=== PATIENT | male | born 1960 | race Caucasian/White ===

== ENCOUNTER 2019-10-12 20:41 | Inpatient (IN) | payer OTHER, SELFPAY ==
--- NOTE | ~2019-10-12 | XR_ITS ---
EXAMINATION: XR chest 1V portable DATE: 10/12/2019 21:57 INDICATION: Dizziness. Weakness. TECHNIQUE: A single frontal view of the chest was obtained. COMPARISON: Chest 2 views 09/17/2019, chest CT 09/17/2019 FINDINGS: There are lucencies in the lungs, consistent with emphysema. No pleural effusion or pneumot horax. The heart size is normal. Median sternotomy wires are noted. IMPRESSION: 1. Emphysema. Reviewed, dictated and finalized at location A. ENGINEER IMPRESSION: 1. Emphysema.
--- NOTE | 2019-10-12 20:40 | ED.GENADULT ---
HPI - General Adult General Chief complaint: Recheck/Abnormal Lab/Rx Stated complaint: HYPERGLYCEMIA Time Seen by Provider: 10/12/19 20:40 Source: patient Mode of arrival: EMS Limitations: no limitations History of Present Illness HPI narrative: A 59 y/o male presents to the ED, via EMS, with c/o high blood sugar. Pt states that his blood sugar read high when he checked it at home tonight at 2000. He normally checks his blood sugar at 0600, 1200, 1700, and 2000 and reports that it has been intermittently high for the past month. Pt called his sister today after he tested his blood sugar, and his sister called EMS. EMS notes that his blood sugar read high on their meter that reads up to 600 en route. Pt recently got a new blood glucose medication, and states that he is unsure how to take the new medication. He reports nausea, lightheadedness, CP, and dizziness. He notes that the CP has been constant for a week and had an appointment with Dr. Robison on 10/07/19. Pt states that Dr. Robison gave him a prescription for his heart rate and he started it on Sunday. He has a follow-up appointment with Dr. Robison on 10/15/19. Pt has a PMHX of HTN, NM, CABG, COPD, and hyperlipidemia. He takes Eliquis BID. Pt lives alone. complaint: High blood sugar Onset (ago): month(s) (1) Associated symptoms: chest pain, nausea/vomiting and other (Lightheadedness, dizziness) Treatments prior to arrival: other (Insulin) Related Data Home Medications Medication Instructions Recorded Confirmed albuterol sulfate 90 mcg/actuation 1 puff INHALATION Q4H PRN 10/06/19 aerosol inhaler apixaban 5 mg tablet 5 mg PO BID 10/06/19 aspirin 81 mg tablet,delayed 81 mg PO DAILY 10/06/19 release atorvastatin 40 mg tablet 40 mg PO DAILY 10/06/19 beclomethasone dipropionate 80 mcg INHALATION 10/06/19 mcg/actuation aerosol inhaler ferrous sulfate 325 mg (65 mg 325 mg PO BID 10/06/19 iron) tablet furosemide 20 mg tablet 20 mg PO TID tablet 10/06/19 hydrocodone 7.5 mg-acetaminophen 1 tablet PO Q6H PRN 10/06/19 325 mg tablet levetiracetam 1,000 mg tablet 1,000 mg PO Q12H 10/06/19 lisinopril 2.5 mg tablet 2.5 mg PO DAILY 10/06/19 metoprolol succinate 25 mg 25 mg PO DAILY 10/06/19 tablet,extended release 24 hr omeprazole 20 mg tablet,delayed 20 mg PO DAILY 10/06/19 release ranolazine 500 mg tablet,extended 500 mg PO Q12H 10/06/19 release,12 hr sertraline 100 mg tablet 100 mg PO DAILY 10/06/19 alprazolam 1 mg tablet 0.5 mg PO BID tablet 10/07/19 diltiazem HCl 30 mg tablet 30 mg PO ONCE tablet 10/07/19 famotidine 20 mg tablet 20 mg PO DAILY 10/07/19 gabapentin 300 mg capsule 300 mg PO BID cap 10/07/19 insulin lispro 100 unit/mL 1 sliding scale dose SUB-Q 10/07/19 subcutaneous solution USEASDIRECTD triamcinolone acetonide 0.1 % 1 applic TOPICAL BID 10/07/19 topical cream Allergies Allergy/AdvReac Type Severity Reaction Status Date / Time glimepiride Allergy Intermediate Rash Verified 10/07/19 10:11 codeine Allergy Unknown Unknown Verified 10/07/19 10:11 glyburide Allergy Unknown Unknown Verified 10/07/19 10:11 metformin Allergy Unknown Unknown Verified 10/07/19 10:11 Review of Systems Review of Systems: All systems reviewed & are unremarkable except as noted in HPI and below Cardiovascular: Cardiovascular: Reports chest pain Gastrointestinal: Gastrointestinal: Reports nausea Neurologic: Reports dizziness and Reports other (Lightheadedness) [facility] Past Medical History Medical History (Updated 10/12/19 @ 22:56 by Danny Guerrero MD) Anemia (Acute) Ankle fracture, left (Acute) Anxiety (Acute) Arthritis (Acute) Asthma (Acute) Bipolar disorder (Acute) COPD (chronic obstructive pulmonary disease) (Acute) CVA (cerebral vascular accident) (Acute) Deficient knowledge of leg surgery (Acute) Depression (Acute) Diabetes (Acute) Elevated lipids (Acute) GI bleed (Acute) Headache, migraine (Acute) History of radiation therapy (Acute) H
--- NOTE | 2019-10-12 20:43 | ECG_ITS ---
Measurements Intervals [place] Rate: 115 P: [place]: 0 QRS: -9 QRSD: 81 T: 81 QT: 425 QTc: 588 Interpretive Statements ATRIAL FLUTTER/TACHYCARDIA WITH RAPID VENTRICULAR RESPONSE INFERIOR INFARCT, AGE INDETERMINATE ABNORMAL ECG Electronically Signed On 10-13-2019 6:30:14 RAILROAD HAND by Gus Robison D.O.
[2019-10-12 20:44] VITALS: BP 144/80; RESP 30; TEMP 36.8; O2SAT 96
[2019-10-12 20:49] LABS: Glucose Point of Care > 500 (65-105)
[2019-10-12 21:04] LABS: Basophils Percent Auto 0.6 % (0.2-1.2); Eosinophils Absolute Auto 0.1 K/mm3 (0-0.3); Hematocrit 41.8 % (42.0-52.0); Hemoglobin 13.4 g/dL (14.0-18.0); Immature Granulocyte Absolute 0.04 K/mm3 (0.00-0.031); Immature Granulocyte Percent A 0.6 % (0-0.5); Lymphocytes Absolute Auto 1.51 K/mm3 (0.9-3.2); Lymphocytes Percent Auto 21.1 % (18.3-44.2); Mean Corpuscular HGB Conc 32.1 g/dl (32-36); Mean Corpuscular Hemoglobin 31.4 pg (26-34); Mean Corpuscular Volume 97.9 fl (80-100); Mean Platelet Volume 10.9 fl (7.4-10.4); Monocytes Absolute Auto 0.5 K/mm3 (0.1-0.6); Monocytes Percent Auto 7.4 % (2.6-8.5); Neutrophils Absolute Auto 4.9 K/mm3 (1.3-6.7); Neutrophils Percent Auto 68.3 % (45.5-73.1); Platelet Count Result 182 k/mm3 (150-375); Red Blood Count 4.27 M/mm3 (4.6-6.20); Red Cell Distribution Width 13.7 % (11.5-14.5); White Blood Count 7.2 K/mm3 (4.5-10.0)
[2019-10-12] MEDS: SODIUM CHLORIDE 0.9% IV 1,000 ML 999 ML IV CONT (21:15)
[2019-10-12 21:17] LABS: Alveolar/Arterial O2 Gradient 26.4 mmHg; Base Excess ABG -3.1 mEq/l (+/-2.0); Carboxyhemoglobin 4.5 % THb (0-2.0); Fractional Inspired Oxygen 21 %; HCO3 ABG 22.5 mEq/l (22.0-26.0); Methemoglobin ABG 0.3 %THb (0-1.5); Oxygen Content ABG 17.7 %vol (16.0-22.0); Oxygen Saturation ABG 93.8 % (95.0-100.0); Oxyhemoglobin 89.2 % THb (90.0-100.0); PCO2 ABG 42.4 mmHg (35.0-45.0); PO2 ABG 72.6 mmHg (80.0-100.0); PO2 FiO2 Ratio Arterial Blood 3.46 %; Total Hemoglobin 14.1 g/dL (12.0-18.0); pH ABG 7.343 (7.350-7.450)
[2019-10-12 21:18] LABS: Device ROOM AIR; Modified Allen's Test Pass; Site Drawn LEFT RADIAL
[2019-10-12 21:26] LABS: Beta-Hydroxybutyrate/Acetoacetate 0.09 mmol/L (0.02-0.27)
[2019-10-12 21:27] LABS: Alanine Aminotransferase 18 U/L (4-50); Albumin Level 3.8 g/dL (3.5-5.1); Alkaline Phosphatase 93 U/L (38-126); Aspartate Amino Transferase 17 U/L (17-59); Bilirubin,Total 0.2 mg/dL (0.2-1.3); Blood Urea Nitrogen 26 mg/dL (9-20); Calcium 8.3 mg/dL (8.4-10.2); Carbon Dioxide 22 mmol/L (22-30); Chloride 96 mmol/L (98-107); Estimated Glomerular Filt Rate > 60; Magnesium 1.7 mg/dL (1.6-2.3); Phosphorus 4.7 mg/dL (2.5-4.5); Potassium 4.5 mmol/L (3.4-5.0); Sodium 130 mmol/L (137-145)
[2019-10-12 21:38] LABS: Glucose 690 mg/dL (75-110)
[2019-10-12 21:47] VITALS: BP 121/76; PULSE 117; RESP 20; O2SAT 98
--- NOTE | 2019-10-12 23:04 | PC.NURSE ---
called pharmacy on insulin drip. States they will started mixing it.
[2019-10-13] VITALS (27 sets, daily range): BP systolic 83–116; BP diastolic 54–81; PULSE 80–120; RESP 11–28; TEMP 36.1–36.6; O2SAT 92–100; BMI 30.7
[2019-10-13 01:02] LABS: Basophils Absolute Auto 0.1 K/mm3 (0.0-0.1); Basophils Percent Auto 0.7 % (0.2-1.2); Eosinophils Absolute Auto 0.2 K/mm3 (0-0.3); Eosinophils Percent Auto 2.4 % (0-4.4); Hematocrit 43.2 % (42.0-52.0); Hemoglobin 14.1 g/dL (14.0-18.0); Immature Granulocyte Absolute 0.06 K/mm3 (0.00-0.031); Immature Granulocyte Percent A 0.7 % (0-0.5); Lymphocytes Absolute Auto 2.51 K/mm3 (0.9-3.2); Lymphocytes Percent Auto 28.3 % (18.3-44.2); Mean Corpuscular HGB Conc 32.6 g/dl (32-36); Mean Corpuscular Hemoglobin 31.4 pg (26-34); Mean Corpuscular Volume 96.2 fl (80-100); Mean Platelet Volume 10.6 fl (7.4-10.4); Monocytes Absolute Auto 0.7 K/mm3 (0.1-0.6); Monocytes Percent Auto 7.4 % (2.6-8.5); Neutrophils Absolute Auto 5.4 K/mm3 (1.3-6.7); Neutrophils Percent Auto 60.5 % (45.5-73.1); Platelet Count Result 189 k/mm3 (150-375); Red Blood Count 4.49 M/mm3 (4.6-6.20); Red Cell Distribution Width 13.8 % (11.5-14.5); White Blood Count 8.9 K/mm3 (4.5-10.0)
--- NOTE | 2019-10-13 01:21 | ECHO_ITS ---
Patient Info Name: Martin Mcwilliams Age: 59 years : 1960 Gender: Male Ht: 73 in Wt: 227 lbs BSA: 2.33 m2 HR: 80 bpm BP: 145 / 83 mmHg Heart Rhythm: Atrial Flutter Technical Quality: Good Exam Date: 10/13/2019 7:41 AM Exam Location: [facility] Card Pulmonary Patient Status: Inpatient Admit Date: 10/12/2019 Staff Ordering Physician: Ayush Carmona MD Trim Line Worker: Reji Trivedi RDCS, RT Attending Provider: Ayush Carmona MD Referring Physician: Kristine BAXTER; Exam Type: CA echo doppler color flow Study Info Indications I50.9 - Heart failure, unspecified Complete two-dimensional, color flow and Doppler transthoracic echocardiogram is performed. Summary 1. Left ventricular chamber dimension is normal. 2. Left ventricular systolic function is normal, estimated at 55-60%. 3. Left ventricular septal wall motion is abnormal with septal motion related to bundle branch block. 4. The left ventricular diastolic function is normal. 5. E/e' 5 is not elevated. 6. TAPSE 1.6 cm suggests mild RV systolic dysfunciton. 7. There is mild mitral valve regurgitation. 8. There is mild tricuspid valve regurgitation. 9. No pulmonary hypertension, estimated pulmonary arterial systolic pressure is 29 mmHg. 10. Dilated inferior vena cava with >50% collapse upon inspiration consistent with elevated right atrial pressure, 10 mmHg. Left Ventricle E/e' 5 is not elevated. Left ventricular chamber dimension is normal. Left ventricular systolic function is normal, estimated at 55-60%. Left ventricular septal wall motion is abnormal with septal motion related to bundle branch block. The left ventricular diastolic function is normal. Right Ventricle TAPSE 1.6 cm suggests mild RV systolic dysfunciton. Right ventricular chamber dimension is not well visualized. Left Atria Left atrial chamber dimension is normal. Right Atria Right atrial chamber dimension is normal. Aortic Valve The aortic valve is trileaflet. There is no aortic valve stenosis. There is no aortic valve regurgitation. Pulmonic Valve There is no pulmonic regurgitation. Mitral Valve There is no mitral valve stenosis. There is mild mitral valve regurgitation. Tricuspid Valve There is mild tricuspid valve regurgitation. No pulmonary hypertension, estimated pulmonary arterial systolic pressure is 29 mmHg. Pericardium/Pleural There is no pericardial effusion. Inferior Vena Cava Dilated inferior vena cava with >50% collapse upon inspiration consistent with elevated right atrial pressure, 10 mmHg. Aorta The aortic root size at the sinus of Valsalva is normal. Left Ventricular Outflow Tract Name Value Normal LVOT 2D LVOT Diameter 2.3 cm LVOT Doppler LVOT Peak Velocity 74 cm/s LVOT Peak Gradient 1 mmHg LVOT Mean Gradient 1 mmHg LVOT VTI 14 cm LVOT VTI/AV VTI Ratio 0.7 LVOT Stroke Volume 59 ml Pulmonic Valve
--- NOTE | 2019-10-13 01:32 | PM.IMHP ---
H&P: HPI History of Present Illness Chief complaint: Heart palpitations and hyperglycemia+ Narrative: This is a 59 year old poorly compliant diabetic male with known past medical history of COPD, atrial fibrillation on Eliquis therapy, cirrhosis and seizures who presented to the hospital yesterday with a complaint of palpitations and hyperglycemia. Yesterday evening he checked his blood sugar and his meter said >600 mg/dl. He decided to call EMS and come to the hospital. The patient also reports intermittent midsternal chest pain over the past week. He was told by his Finish Rolls Operator, Dr. Robison that if his tachycardia does not improve he would need to be cardioverted. On further questioning the patient describes that lately he feels that his stomach doesn't empty out after he eats and that hours later he vomits up food that he ate earlier. The patient was evaluated in the ER tonight and found to have tachycardia. EKG demonstrated atrial flutter with RVR. The patient also had an elevated blood glucose but was not in acute DKA. The patient has no other complaints tonight. Review of Systems Review of Systems: All systems reviewed & are unremarkable except as noted in HPI and below PMFSH Past Medical History Medical History (Updated 10/14/19 @ 19:03 by Ayush Carmona MD) Anemia (Acute) Ankle fracture, left (Acute) Anxiety (Acute) Arthritis (Acute) Asthma (Acute) Bipolar disorder (Acute) COPD (chronic obstructive pulmonary disease) (Chronic) CVA (cerebral vascular accident) (Acute) Deficient knowledge of leg surgery (Acute) Depression (Acute) Diabetes (Acute) Elevated lipids (Acute) GI bleed (Acute) Headache, migraine (Acute) History of radiation therapy (Acute) Hypertension (Chronic) Liver disease (Acute) Lupus (Acute) Mitral valve prolapse (Acute) Myocardial infarction (Acute) Pneumonia (Acute) Portal vein thrombosis (Acute) Prostate cancer (Acute) Seizure (Acute) Seizure disorder (Chronic) TIA (transient ischemic attack) (Acute) Surgical History Surgical History History of heart surgery (Acute) History of tonsillectomy (Acute) Hx of CABG (Acute) Family History Family History Sibling Parkinson disease Brain cancer Mother Diabetes mellitus Cancer Social History Social History Smoking packs per day: 0.25 Smoking cigarettes per day: 5.0 Years smoked: 40 Smoking pack-years: 10.00 Smoking status: Current every day smoker Tobacco type: cigarettes Alcohol intake: former Substance use: unknown Substance use type: does not use Gender identity (if verbalized by the patient): Male Spiritual care concerns: No Agree to blood products: Yes Meds Home Medications and Allergies Home Medications Medication Instructions Recorded Confirmed Type albuterol sulfate 90 mcg/actuation 2 puff INHALATION Q4H PRN 10/06/19 10/13/19 History aerosol inhaler apixaban 5 mg tablet 5 mg PO BID 10/06/19 10/13/19 History aspirin 81 mg tablet,delayed 81 mg PO DAILY 10/06/19 10/13/19 History release atorvastatin 40 mg tablet 40 mg PO DAILY 10/06/19 10/13/19 History ferrous sulfate 325 mg (65 mg 325 mg PO BID 10/06/19 10/13/19 History iron) tablet furosemide 20 mg tablet 20 mg PO TID tablet 10/06/19 10/13/19 History hydrocodone 7.5 mg-acetaminophen 1 tablet PO Q6H PRN 10/06/19 10/13/19 History 325 mg tablet levetiracetam 1,000 mg tablet 1,000 mg PO Q12H 10/06/19 10/13/19 History ranolazine 500 mg tablet,extended 500 mg PO Q12H 10/06/19 10/13/19 History release,12 hr sertraline 100 mg tablet 100 mg PO DAILY 10/06/19 10/13/19 History alprazolam 1 mg tablet 1 mg PO BID PRN tablet 10/07/19 10/13/19 History diltiazem HCl 30 mg tablet 30 mg PO BID tablet 10/07/19 10/13/19 History famotidine 20 mg tablet 20 mg PO BID 10/07/19 10/13/19 History ga
[2019-10-13] MEDS: SODIUM CHLORIDE 0.9% IV 1,000 ML 120 ML IV CONT ×3 (01:43→17:41)
[2019-10-13 02:06] LABS: Glucose Point of Care 249 (65-105)
[2019-10-13 02:06] LABS: Glucose Point of Care 328 (65-105)
--- NOTE | 2019-10-13 02:22 | PC.NURSE ---
This patient, Martin Mcwilliams, was admitted to Intensive Care Unit-4 on 10/13/2019 at 0020. Patient/family oriented to hospital policies and general routines including ID bracelet, bed and alarms, visiting hours, pain management, procedures, bathroom and other care routines, personal items, smoking policy, room service/diet, and visiting hours. Valuables list has been completed. Information on how to activate the Rapid Response Team has been discussed. Patient/Family are encouraged to report perceived risks to care and to ask questions if they do not understand what they are told or what they should do.
[2019-10-13 02:34] LABS: Troponin I < 0.012 ng/mL (0.000-0.034)
[2019-10-13 02:36] LABS: Glucose Point of Care 241 (65-105)
[2019-10-13 02:42] LABS: Add Urine Microscopic? YES; Appearance Urine Clear (Clear); Bilirubin Urine Negative (Negative); Blood Urine 1+ (Negative); Color Urine Straw (Yellow); Glucose Urine UA 3+ mg/dL (Negative); Ketones Urine Negative (Negative); Leukocyte Esterase Ur Negative LEU/UL (Negative); Nitrate Urine Negative (Negative); Protein Urine Negative (Negative); Specific Grav Ur 1.027 (1.001-1.035); Squamous Epithelial Cell Urine Rare /hpf (Few); Urobilinogen Urine Negative mg/dL (<2.0); WBC Urine 0-3
[2019-10-13 03:58] LABS: Glucose Point of Care 183 (65-105)
[2019-10-13 05:07] LABS: Basophils Absolute Auto 0.1 K/mm3 (0.0-0.1); Basophils Percent Auto 0.7 % (0.2-1.2); Eosinophils Absolute Auto 0.3 K/mm3 (0-0.3); Eosinophils Percent Auto 2.9 % (0-4.4); Hematocrit 41.1 % (42.0-52.0); Hemoglobin 13.5 g/dL (14.0-18.0); Immature Granulocyte Absolute 0.04 K/mm3 (0.00-0.031); Immature Granulocyte Percent A 0.5 % (0-0.5); Lymphocytes Absolute Auto 2.66 K/mm3 (0.9-3.2); Lymphocytes Percent Auto 31.3 % (18.3-44.2); Mean Corpuscular HGB Conc 32.8 g/dl (32-36); Mean Corpuscular Hemoglobin 31.3 pg (26-34); Mean Corpuscular Volume 95.1 fl (80-100); Mean Platelet Volume 10.7 fl (7.4-10.4); Monocytes Absolute Auto 0.8 K/mm3 (0.1-0.6); Monocytes Percent Auto 8.8 % (2.6-8.5); Neutrophils Absolute Auto 4.7 K/mm3 (1.3-6.7); Neutrophils Percent Auto 55.8 % (45.5-73.1); Platelet Count Result 184 k/mm3 (150-375); Red Blood Count 4.32 M/mm3 (4.6-6.20); Red Cell Distribution Width 13.7 % (11.5-14.5); White Blood Count 8.5 K/mm3 (4.5-10.0)
[2019-10-13 05:18] LABS: Glucose Point of Care 177 (65-105)
[2019-10-13 05:21] LABS: Blood Urea Nitrogen 24 mg/dL (9-20); Calcium 8.3 mg/dL (8.4-10.2); Carbon Dioxide 26 mmol/L (22-30); Chloride 103 mmol/L (98-107); Estimated CRCL calculation 113 ml/min; Estimated Glomerular Filt Rate > 60; Glucose 169 mg/dL (75-110); Magnesium 1.9 mg/dL (1.6-2.3); Potassium 3.7 mmol/L (3.4-5.0); Sodium 136 mmol/L (137-145)
[2019-10-13 05:32] LABS: Troponin I < 0.012 ng/mL (0.000-0.034)
--- NOTE | 2019-10-13 07:13 | WPDCNINT ---
Assessment and Plan Assessment and plan (1) Diabetes: Code(s): E11.9 - Type 2 diabetes mellitus without complications Status: Acute Assessment and Plan: Uncontrolled IDDM. He was not in DKA or HHS. Now off of insulin drip. Will given NPH 15u now and resume home Lantus dosing tonight. Start SSI. Check Hgb A1c. (2) Atrial flutter with rapid ventricular response: Code(s): I48.92 - Unspecified atrial flutter Status: Acute Assessment and Plan: Follows with Dr. Robison as OP and he was consulted here. Resume home diltiazem and stop diltiazem gtt. Continue Eliquis. (3) CAD (coronary artery disease): Code(s): I25.10 - Atherosclerotic heart disease of [place] coronary artery without angina pectoris Status: Acute Assessment and Plan: No acute issues. Troponins negative. Resume home meds. (4) Smoking: Code(s): F17.200 - Nicotine dependence, unspecified, uncomplicated Status: Acute Assessment and Plan: Pt was counseled about cessation. (5) Seizure disorder: Code(s): G40.909 - Epilepsy, unspecified, not intractable, without status epilepticus Status: Acute Assessment and Plan: Continue Keppra. Additional Plan Critical care time: 35 minutes. Consult date: 10/13/19 Time Seen: 08:00 HPI: Martin Mcwilliams is a 59 year old male with a history of atrial flutter, COPD, DM, seizure disorder, tobacco abuse, and depression who presented to the ED with hyperglycemia. He checked his glucose and it was read as high. He called EMS and was also read as high on their meter. He was brought to the ED where he was found to have a glucose of 690. He was started on an insulin drip. He also had recently diagnosed atrial flutter and had seen Dr. Robison on 10/07 where he was started on amiodarone. His HR was 119 in the ED and he was started on a diltiazem drip. He was admitted to the ICU for further management. He currently denies any symptoms. Review of Systems Review of Systems: All systems reviewed & are unremarkable except as noted in HPI and below Constitutional: Constitutional: Reports no additional constitutional complaints Eyes: Eyes: Reports no additional eye complaints ENT: Reports system reviewed and no additional complaints, except as documented Cardiovascular: Cardiovascular: Reports palpitations Respiratory: Respiratory: Reports no additional respiratory complaints Gastrointestinal: Gastrointestinal: Reports no additional gastrointestinal complaints Genitourinary: Genitourinary: Reports no additional male genitourinary complaints Musculoskeletal: Musculoskeletal: Reports no additional musculoskeletal complaints Integumentary/Breasts: Skin/Breast: Reports system reviewed and no additional complaints, except as docu Neurologic: Reports system reviewed and no additional complaints, except as documented Psychiatric: Psychiatric: Reports no additional psychiatric complaints ON LICENSE OF [facility] Past Medical History Medical History (Updated 10/13/19 @ 02:37 by Ayush Carmona MD) Anemia (Acute) Ankle fracture, left (Acute) Anxiety (Acute) Arthritis (Acute) Asthma (Acute) Bipolar disorder (Acute) COPD (chronic obstructive pulmonary disease) (Chronic) CVA (cerebral vascular accident) (Acute) Deficient knowledge of leg surgery (Acute) Depression (Acute) Diabetes (Acute) Elevated lipids (Acute) GI bleed (Acute) Headache, migraine (Acute) History of radiation therapy (Acute) Hypertension (Acute) Liver disease (Acute) Lupus (Acute) Mitral valve prolapse (Acute) Myocardial infarction (Acute) Pneumonia (Acute) Portal vein thrombosis (Acute) Prostate cancer (Acute) Seizure (Acute) Seizure disorder (Acute) TIA (transient ischemic attack) (Acute) Surgical History Surgical History History of heart surgery (Acute) History of tonsillectomy (Acute) Hx of CABG (Acute) Family History Family History (Reviewed
--- NOTE | 2019-10-13 07:48 | PM.CNCAR ---
Assessment and Plan Assessment and plan (1) Smoking: Code(s): F17.200 - Nicotine dependence, unspecified, uncomplicated Status: Acute Assessment and Plan: Counseled regarding smoking cessation. (2) CAD (coronary artery disease): Code(s): I25.10 - Atherosclerotic heart disease of [place] coronary artery without angina pectoris Status: Acute (3) Atrial flutter with rapid ventricular response: Code(s): I48.92 - Unspecified atrial flutter Status: Acute Assessment and Plan: Rate controlled on Cardizem drip. Continue Amiodarone PO and Eliquis. Start Metoprolol tartate 25 mg PO every 6 hours for rate control and titrate off Cardizem drip. (4) Hypertension: Code(s): I10 - Essential (primary) hypertension Status: Acute Assessment and Plan: Relative hypotension on Cardizem drip. Will titrate off. (5) Elevated lipids: Code(s): E78.5 - Hyperlipidemia, unspecified Status: Acute (6) COPD (chronic obstructive pulmonary disease): Code(s): J44.9 - Chronic obstructive pulmonary disease, unspecified Status: Chronic History of Present Illness History of Present Illness Consult date/time: 10/13/19 07:48 Consult regarding atrial flutter with RVR. Patient is a 59 yr old man who presents for a follow up visit regarding his cardiovascular status. He has a history of CAD, STEMI with VT/Vfib arrest, DVT of his leg (Xarelto caused GI/ bleeding in past), PAD with vascular bypass surgery, cardiomyopathy with apical thrombus that both resolved, COPD, Hypertension, DM, Smoking. Reports he had more palpitations last night and checked his BP which was over 600 so he decided to come in to ED. Denies chest pain or sob. His HR is rapid and EKG shows atrial flutter RVR. He can walk with a cane only minimal distance due to right leg pain and neuropathy from diabetes. Vascular surgeon planning on doing vascular bypass surgery. Admits to smoking 3 cigarettes per day. He just started on Amiodarone PO last which is 4 days ago. He was started on Cardizem drip and rate is controlled. Reason For Visit: Heart palpitations and hyperglycemia+ Review of Systems Review of Systems: All systems reviewed & are unremarkable except as noted in HPI and below Constitutional: Constitutional: Reports fatigue Respiratory: Respiratory: Reports as per HPI, Reports dyspnea on exertion and Denies wheezing Gastrointestinal: Gastrointestinal: Reports as per HPI and Denies abdominal pain Genitourinary: Genitourinary: Reports as per HPI Musculoskeletal: Musculoskeletal: Reports as per HPI Neurologic: Reports as per HPI [facility] Past Medical History Medical History (Updated 10/13/19 @ 02:37 by Ayush Carmona MD) Anemia (Acute) Ankle fracture, left (Acute) Anxiety (Acute) Arthritis (Acute) Asthma (Acute) Bipolar disorder (Acute) COPD (chronic obstructive pulmonary disease) (Chronic) CVA (cerebral vascular accident) (Acute) Deficient knowledge of leg surgery (Acute) Depression (Acute) Diabetes (Acute) Elevated lipids (Acute) GI bleed (Acute) Headache, migraine (Acute) History of radiation therapy (Acute) Hypertension (Acute) Liver disease (Acute) Lupus (Acute) Mitral valve prolapse (Acute) Myocardial infarction (Acute) Pneumonia (Acute) Portal vein thrombosis (Acute) Prostate cancer (Acute) Seizure (Acute) Seizure disorder (Acute) TIA (transient ischemic attack) (Acute) Surgical History Surgical History History of heart surgery (Acute) History of tonsillectomy (Acute) Hx of CABG (Acute) Family History Family History Sibling Parkinson disease Brain cancer Mother Diabetes mellitus Cancer Social History Social History Smoking packs per day: 0.25 Smoking cigarettes per day: 5.0 Years smoked: 40
[2019-10-13 08:53] LABS: Glucose Point of Care 192 (65-105)
[2019-10-13] MEDS: levETIRAcetam 500 MG TABLET 1000 MG PO ×2 (09:01→20:25)
[2019-10-13] MEDS: FUROSEMIDE 20 MG TABLET PO ×3 (09:01→16:28)
[2019-10-13] MEDS: MAGNESIUM OXIDE 400 MG TABLET PO ×2 (09:01→16:28)
[2019-10-13] MEDS: RANOLAZINE 500 MG TAB.ER.12H PO ×2 (09:01→20:25)
[2019-10-13] MEDS: SERTRALINE HCL 50 MG TABLET 100 MG PO (09:01)
[2019-10-13] MEDS: FAMOTIDINE 20 MG TABLET PO ×2 (09:02→16:28)
[2019-10-13] MEDS: GABAPENTIN 300 MG CAPSULE PO ×2 (09:02→16:28)
[2019-10-13] MEDS: ATORVASTATIN 40 MG TABLET PO (09:02)
[2019-10-13] MEDS: ASPIRIN 81 MG ENTERIC TABLET PO (09:02)
[2019-10-13] MEDS: FERROUS SULFATE 324 MG TABLET PO ×2 (09:02→16:28)
[2019-10-13] MEDS: APIXABAN 5 MG TABLET PO ×2 (09:02→16:28)
[2019-10-13] MEDS: AMIODARONE HCL 200 MG TABLET PO ×2 (10:35→20:24)
[2019-10-13] MEDS: DILTIAZEM HCL 30 MG TABLET PO ×2 (10:35→20:23)
[2019-10-13] MEDS: TRIAMCINOLONE ACET 0.1% CREAM 15 GM TUBE 1 APPLIC TOPICAL ×2 (10:36→16:27)
[2019-10-13] MEDS: INSULIN HUMAN NPH (*BKC) 100 UNITS/ML 15 UNITS SUB-Q (10:41)
[2019-10-13] MEDS: METOPROLOL TARTRATE 25 MG TABLET PO ×3 (11:37→23:45)
--- NOTE | 2019-10-13 11:41 | PC.NURSE ---
This patient, Martin Mcwilliams, was transferred to [ 246] on 10/13/19 at 1141. Personal belongings sent with patient. Belongings list checked and signed with receiving [ ]. Report given to [ BURKE oPllock @ [phone]]. Appropriate documentation sent with patient.
[2019-10-13 11:54] LABS: Hemoglobin A1C 10.7 % (<5.7)
--- NOTE | 2019-10-13 11:54 | PC.NURSE ---
Patient transfered from ICU room 4. Patient oriented to the room. Bed alarm applied. Patient educated on fall precautions.
[2019-10-13] MEDS: INSULIN ASPART (*BKC) 100 UNITS/ML SUB-Q ×2 (14:18→17:44)
[2019-10-13 14:23] LABS: Glucose Point of Care 275 (65-105)
--- NOTE | 2019-10-13 17:40 | PM.IMPN ---
Progress Note: A&P Assessment and Plan (1) Atrial flutter with rapid ventricular response: Code(s): I48.92 - Unspecified atrial flutter Status: Acute Assessment and Plan: Patient 59-year-old male with history of diabetes coronary artery disease with a CABG atrial fibrillation he presented emergency department with a complaint of hyperglycemia and chest pain was found to have atrial fibrillation with RVR flutter patient was started on amiodarone drip his rate is trending down he was seen by reimbursement liaison and stop the amiodarone drip is on oral amiodarone and metoprolol his rate is trending down, patient with a glycemia blood sugar of 600 however he was not in DKA and blood sugars are now trending down, present time patient is feeling much better denies any chest pain shortness of breath palpitation fever or chills (2) Hyperglycemia: Code(s): R73.9 - Hyperglycemia, unspecified Status: Acute Assessment and Plan: Upon arrival patient blood sugar was 600 he was not in DKA started on his regular regimen will monitor (3) Seizure disorder: Code(s): G40.909 - Epilepsy, unspecified, not intractable, without status epilepticus Status: Acute Assessment and Plan: Clinically stable will continue home regimen (4) Hypertension: Code(s): I10 - Essential (primary) hypertension Status: Acute Assessment and Plan: Patient is seen by reimbursement liaison on amiodarone and metoprolol will monitor (5) COPD (chronic obstructive pulmonary disease): Code(s): J44.9 - Chronic obstructive pulmonary disease, unspecified Status: Chronic Assessment and Plan: Patient is clinically stable will continue updraft as needed Time Spent With Patient Time with patient: 15 - 25 minutes Subjective Interval history: Patient 59-year-old male with history of diabetes coronary artery disease with a CABG atrial fibrillation he presented emergency department with a complaint of hyperglycemia and chest pain was found to have atrial fibrillation with RVR flutter patient was started on amiodarone drip his rate is trending down he was seen by reimbursement liaison and stop the amiodarone drip is on oral amiodarone and metoprolol his rate is trending down, patient with a glycemia blood sugar of 600 however he was not in DKA and blood sugars are now trending down, present time patient is feeling much better denies any chest pain shortness of breath palpitation fever or chills Review of Systems Constitutional: Constitutional: Reports as per HPI Eyes: Eyes: Reports as per HPI ENT: Reports as per HPI Cardiovascular: Cardiovascular: Reports as per HPI Respiratory: Respiratory: Reports as per HPI Gastrointestinal: Gastrointestinal: Reports as per HPI Genitourinary: Genitourinary: Reports as per HPI Musculoskeletal: Musculoskeletal: Reports as per HPI Integumentary/Breasts: Skin/Breast: Reports as per HPI Neurologic: Reports as per HPI Psychiatric: Psychiatric: Reports as per HPI Exam Const: General: comfortable and no acute distress HENMT: General nose exam: nares normal Mouth: Yes moist mucous membranes Eyes: General: appearance normal, both eyes and all related structures Sclera: sclerae normal Neck: Neck: supple Resp: Effort & Inspection: normal respiratory effort Auscultation: clear to auscultation bilaterally Cardio: Other: Irregularly irregular no gallop or murmur GI: Palpation (GI): Yes soft Auscultation: normal bowel sounds Skin: General skin exam: normal color and no rashes or lesions noted Neuro: Speech: normal speech Sensory Exam: normal sensation Extrem: General: normal to inspection Psych: Mental Status: mental status grossly normal Affect: normal affect Objective Data Vital Signs Vital Signs: Vital Signs - 24 hr 10/12/19 20:44 10/12/19 21:47 10/13/19 00:25 Temperature 98.3 F 97.8 F Pulse Rate 117 H 90 Respiratory Rate 30 H 20 20 Blood Pressure 144/80 H
[2019-10-13 18:20] LABS: Glucose Point of Care 319 (65-105)
[2019-10-13] MEDS: INSULIN GLARGINE (*BKC) 100 UNITS/ML 28 UNITS SUB-Q (20:29)
[2019-10-13 21:32] LABS: Glucose Point of Care 360 (65-105)
[2019-10-14] VITALS (13 sets, daily range): BP systolic 109–110; BP diastolic 67–69; PULSE 108–123; RESP 18–20; TEMP 36.3–36.4; O2SAT 96
[2019-10-14] MEDS: SODIUM CHLORIDE 0.9% IV 1,000 ML 120 ML IV CONT ×2 (01:17→09:50)
[2019-10-14] MEDS: METOPROLOL TARTRATE 25 MG TABLET PO ×2 (05:30→12:54)
--- NOTE | 2019-10-14 07:36 | ECG_ITS ---
Measurements Intervals [place] Rate: 111 P: [place]: 0 QRS: -16 QRSD: 88 T: 215 QT: 412 QTc: 560 Interpretive Statements ATRIAL FLUTTER/TACHYCARDIA WITH RAPID VENTRICULAR RESPONSE INFERIOR INFARCT, AGE INDETERMINATE BORDERLINE T WAVE ABNORMALITY- LATERAL LEADS ABNORMAL ECG Electronically Signed On 10-14-2019 10:29:32 CARTON CATCHER by Gus Robison D.O.
[2019-10-14] MEDS: APIXABAN 5 MG TABLET PO (08:12)
[2019-10-14] MEDS: FUROSEMIDE 20 MG TABLET PO ×2 (08:12→12:54)
[2019-10-14] MEDS: levETIRAcetam 500 MG TABLET 1000 MG PO (08:12)
[2019-10-14] MEDS: MAGNESIUM OXIDE 400 MG TABLET PO (08:12)
[2019-10-14] MEDS: FERROUS SULFATE 324 MG TABLET PO (08:12)
[2019-10-14] MEDS: FAMOTIDINE 20 MG TABLET PO (08:12)
[2019-10-14] MEDS: AMIODARONE HCL 200 MG TABLET PO (08:12)
[2019-10-14] MEDS: ATORVASTATIN 40 MG TABLET PO (08:12)
[2019-10-14] MEDS: RANOLAZINE 500 MG TAB.ER.12H PO (08:12)
[2019-10-14] MEDS: GABAPENTIN 300 MG CAPSULE PO (08:12)
[2019-10-14] MEDS: ASPIRIN 81 MG ENTERIC TABLET PO (08:12)
[2019-10-14] MEDS: DILTIAZEM HCL 30 MG TABLET PO (08:12)
[2019-10-14] MEDS: SERTRALINE HCL 50 MG TABLET 100 MG PO (08:12)
[2019-10-14] MEDS: TRIAMCINOLONE ACET 0.1% CREAM 15 GM TUBE 1 APPLIC TOPICAL (08:13)
[2019-10-14 08:43] LABS: Hematocrit 42.9 % (42.0-52.0); Mean Corpuscular HGB Conc 32.6 g/dl (32-36); Mean Corpuscular Hemoglobin 31.4 pg (26-34); Mean Corpuscular Volume 96.2 fl (80-100); Mean Platelet Volume 10.7 fl (7.4-10.4); Platelet Count Result 181 k/mm3 (150-375); Red Blood Count 4.46 M/mm3 (4.6-6.20); Red Cell Distribution Width 13.8 % (11.5-14.5); White Blood Count 7.1 K/mm3 (4.5-10.0)
[2019-10-14 09:05] LABS: Blood Urea Nitrogen 16 mg/dL (9-20); Calcium 8.3 mg/dL (8.4-10.2); Carbon Dioxide 24 mmol/L (22-30); Chloride 101 mmol/L (98-107); Estimated CRCL calculation 114 ml/min; Estimated Glomerular Filt Rate > 60; Glucose 230 mg/dL (75-110); Magnesium 1.9 mg/dL (1.6-2.3); Potassium 4.1 mmol/L (3.4-5.0); Sodium 135 mmol/L (137-145)
--- NOTE | 2019-10-14 10:54 | PM.PNCARD ---
Progress Note: A&P Assessment and Plan (1) Smoking: Code(s): F17.200 - Nicotine dependence, unspecified, uncomplicated Status: Acute Assessment and Plan: Counseled regarding smoking cessation. (2) CAD (coronary artery disease): Code(s): I25.10 - Atherosclerotic heart disease of [place] coronary artery without angina pectoris Status: Acute (3) Atrial flutter with rapid ventricular response: Code(s): I48.92 - Unspecified atrial flutter Status: Acute Assessment and Plan: Continue Amiodarone 200 mg PO BID x 2 weeks, then 200 mg daily, and Eliquis. Change Metoprolol tartate 50 mg BID for rate control and continue Diltiazem 30 mg BID. He does not want DC cardioversion at this time. Upon discharge he may f/u with me in 1-2 weeks. (4) Hypertension: Code(s): I10 - Essential (primary) hypertension Status: Acute Assessment and Plan: Stable. (5) Elevated lipids: Code(s): E78.5 - Hyperlipidemia, unspecified Status: Acute (6) COPD (chronic obstructive pulmonary disease): Code(s): J44.9 - Chronic obstructive pulmonary disease, unspecified Status: Chronic Subjective Interval history: He feels great. No chest pain or sob. Exam Const: General: comfortable and no acute distress Resp: Auscultation: no crackles, no rales, no rhonchi, no wheezes and diminished lung sounds Cardio: Rate: tachycardic Rhythm: abnormal rhythm GI: Palpation (GI): Yes soft and No tender Neuro: Speech: normal speech Extrem: Right lower extremity: no edema Left lower extremity: no edema Objective Data Vital Signs Vital Signs: Vital Signs - 24 hr 10/13/19 11:37 10/13/19 12:00 10/13/19 14:00 Temperature 97.0 F L Pulse Rate 120 H 118 H 103 H Respiratory Rate 18 Blood Pressure 107/67 Pulse Oximetry 92 L 10/13/19 15:35 10/13/19 15:44 10/13/19 16:00 Temperature Pulse Rate 86 85 117 H Respiratory Rate 18 18 Blood Pressure Pulse Oximetry 10/13/19 17:22 10/13/19 20:00 10/13/19 20:24 Temperature Pulse Rate 117 H 116 H 117 H Respiratory Rate Blood Pressure Pulse Oximetry 10/13/19 20:28 10/13/19 20:35 10/13/19 22:00 Temperature 97.5 F L Pulse Rate 113 H 115 H 112 H Respiratory Rate 18 18 18 Blood Pressure 116/66 Pulse Oximetry 95 10/13/19 23:45 10/14/19 00:00 10/14/19 02:00 Temperature 97.6 F Pulse Rate 113 H 114 H 120 H Respiratory Rate 18 Blood Pressure 110/67 Pulse Oximetry 96 10/14/19 02:27 10/14/19 02:36 10/14/19 04:00 Temperature Pulse Rate 110 H 111 H 111 H Respiratory Rate 18 18 Blood Pressure Pulse Oximetry 10/14/19 05:30 10/14/19 06:00 10/14/19 08:00 Temperature 97.3 F L Pulse Rate 112 H 123 H 112 H Respiratory Rate 18 Blood Pressure 109/69 Pulse Oximetry 96 10/14/19 08:12 10/14/19 09:18 10/14/19 09:32 Temperature Pulse Rate 123 H 110 H 108 H Respiratory Rate 20 20 Blood Pressure Pulse Oximetry Intake/Output Intake/Output: Intake & Output 10/11/19 10/12/19 10/13/19 10/14/19 23:59 23:59 23:59 23:59 Intake Total 4746.7 2322 Output Total 1200 2150 Balance 3546.7 172 Meds/Results Medications: Active Medications Generic Name Dose Route Start Last Admin Trade Name Freq PRN Reason Stop Dose Admin Hydrocodone Bitart/Acetaminophen 1 tab 10/13/19 01:27 10/14/19 08:20 Brandon 7.5-325 Mg PO 1 tab Q6H PRN Administration Pain (Scale Score 7-10) Albuterol 2 puff 10/13/19 08:22 Proventil Hfa INHALATION Q4H PRN Shortness Of Breath Alprazolam 1 mg 10/13/19 01:27 Xanax PO BID PRN Anxiety Amiodarone HCl 200 mg 10/13/19 09:00 10/14/19 08:12 Pacerone PO 10/20/19 21:01 200 mg Q12HR JIAN Administration Amiodarone HCl 200 mg 10/21/19 08:00 Pacerone PO DAILY@0800 JIAN Apixaban 5 mg 10/13/19 01:35 10/14/19 08:12 Eliquis PO 5 mg BID JIAN A
[2019-10-14 15:45] LABS: Glucose Point of Care 166 (65-105)
--- NOTE | 2019-11-13 17:22 | PM.DS ---
DS: Diagnosis Admitting Diagnosis Admitting Diagnosis: Type 2 diabetes mellitus with ketoacidosis without coma Discharge Diagnosis (1) Atrial flutter with rapid ventricular response: Code(s): I48.92 - Unspecified atrial flutter Status: Acute Assessment and Plan: The patient has been admitted to the ICU secondary to hyperglycemia. We will continue IV diltiazem for rate control overnight. Continue Eliquis therapy. Check TSH w/ reflex T4, Echocardiogram. Cardiology, Dr. Robison consultation in am. (2) Hyperglycemia: Code(s): R73.9 - Hyperglycemia, unspecified Status: Acute Assessment and Plan: Continue IV insulin for now and transition back to SQ insulin once blood sugar normalizes. (3) Chest pain: Code(s): R07.9 - Chest pain, unspecified Status: Acute Assessment and Plan: r/o ACS. trend troponin. Monitor for chest pain. Treat any acute chest pain w/ nitroglycerin SL. (4) COPD (chronic obstructive pulmonary disease): Code(s): J44.9 - Chronic obstructive pulmonary disease, unspecified Status: Chronic Assessment and Plan: Xopenex nebs scheduled. (5) Seizure disorder: Code(s): G40.909 - Epilepsy, unspecified, not intractable, without status epilepticus Status: Chronic Assessment and Plan: Continue Keppra (6) Hypertension: Code(s): I10 - Essential (primary) hypertension Status: Chronic Assessment and Plan: stable. Monitor blood pressure. Continue metoprolol PO. (7) Tobacco dependence: Code(s): F17.200 - Nicotine dependence, unspecified, uncomplicated Status: Chronic Assessment and Plan: I have counseled the patient for 4 minutes regarding tobacco cessation. He verbalized his agreement and understanding of same. DS: Summary Hospital Course Reason for hospitalization: Narrative: This is a 59 year old poorly compliant diabetic male with known past medical history of COPD, atrial fibrillation on Eliquis therapy, cirrhosis and seizures who presented to the hospital yesterday with a complaint of palpitations and hyperglycemia. Yesterday evening he checked his blood sugar and his meter said >600 mg/dl. He decided to call EMS and come to the hospital. The patient also reports intermittent midsternal chest pain over the past week. He was told by his [place], Dr. Robison that if his tachycardia does not improve he would need to be cardioverted. On further questioning the patient describes that lately he feels that his stomach doesn't empty out after he eats and that hours later he vomits up food that he ate earlier. The patient was evaluated in the ER tonight and found to have tachycardia. EKG demonstrated atrial flutter with RVR. The patient also had an elevated blood glucose but was not in acute DKA. The patient has no other complaints tonight. Hospital Course: Patient 59-year-old male with history of diabetes coronary artery disease with a CABG atrial fibrillation he presented emergency department with a complaint of hyperglycemia and chest pain was found to have atrial fibrillation with RVR flutter patient was started on amiodarone drip his rate is trending down he was seen by clam bed laborer and stop the amiodarone drip is on oral amiodarone and metoprolol his rate is trending down, patient with a glycemia blood sugar of 600 however he was not in DKA and blood sugars are now trending down, present time patient is feeling much better denies any chest pain shortness of breath palpitation fever or chills, his rate is controlled, Patient was seen by Dr. Robison,patient does not want DC conversion at this time, Dr Robison recommended Continue Amiodarone 200 mg PO BID x 2 weeks, then 200 mg daily, and Eliquis. Change Metoprolol tartate 50 mg BID for rate control and continue Diltiazem 30 mg BID. and wll follow up in two weeks Time Spent with Patient Time attestation: Total time spent providing and/or coordinating discharge serv
== END 2019-10-14 14:09 | disposition home or self-care (01) | DRG 420 ==
LOC: ANHED 22:56 → ANHICU 10-13 01:34 → ANH2MED 10-13 11:59 → ANH3MEDSUR 10-21 12:35 → ANHICU 10-21 12:35
PROVIDERS: Internal Medicine Critical Care Medicine; Admitting Provider Family Medicine; Emergency Provider Emergency Medicine; PCP Emergency Medicine; Visit Provider Family Medicine
DX: E11.65 Type 2 diabetes mellitus with hyperglycemia (principal); D64.9 Anemia, unspecified; F41.8 Other specified anxiety disorders; M19.90 Unspecified osteoarthritis, unspecified site; F31.9 Bipolar disorder, unspecified; I25.10 Atherosclerotic heart disease of native coronary artery without angina pectoris; E78.5 Hyperlipidemia, unspecified; F17.210 Nicotine dependence, cigarettes, uncomplicated; K74.60 Unspecified cirrhosis of liver; Z23 Encounter for immunization; Z95.1 Presence of aortocoronary bypass graft; Z86.73 Personal history of transient ischemic attack (TIA), and cerebral infarction without residual deficits; I25.2 Old myocardial infarction; Z85.46 Personal history of malignant neoplasm of prostate; Z86.718 Personal history of other venous thrombosis and embolism; Z79.01 Long term (current) use of anticoagulants
CPT/HCPCS: 36415; 36600; 71045; 80048; 80053; 81001; 82010; 82375; 82805; 83036; 83050; 83735; 84100; 84443; 84484; 85025; 85027; 87081; 90471; 90686; 93005; 93306; 94640; 96365; 96366; 99285; A9270; G0008; J1815; J7030

== ENCOUNTER 2019-12-31 00:53 | Day surgery (SDC) | payer OTHER, SELFPAY ==
[2019-12-31] VITALS (8 sets, daily range): BP systolic 94–123; BP diastolic 62–91; PULSE 72–109; RESP 14–19; TEMP 36.4; O2SAT 92–96
--- NOTE | 2019-12-31 06:30 | ECG_ITS ---
Measurements Intervals [place] Rate: 111 P: [place]: 0 QRS: -39 QRSD: 140 T: 261 QT: 408 QTc: 556 Interpretive Statements ATRIAL FLUTTER WITH RAPID VENTRICULAR RESPONSE LEFT AXIS DEVIATION INFERIOR INFARCT, AGE INDETERMINATE ABNORMAL ECG Electronically Signed On 12-31-2019 7:14:32 TAX SERVICES MANAGER by Gus Robison D.O.
[2019-12-31 07:17] LABS: Blood Urea Nitrogen 18 mg/dL (9-20); Calcium 9.4 mg/dL (8.4-10.2); Carbon Dioxide 24 mmol/L (22-30); Chloride 99 mmol/L (98-107); Estimated Glomerular Filt Rate > 60; Glucose 357 mg/dL (75-110); Magnesium 1.9 mg/dL (1.6-2.3); Potassium 4.3 mmol/L (3.4-5.0); Sodium 136 mmol/L (137-145)
--- NOTE | 2019-12-31 08:03 | WPDCARDVER ---
Cardioversion Cardioversion Date of procedure: 12/31/19 Procedure: DC Cardioversion Indications: Symptomatic atrial flutter with rapid ventricular response Description of procedure: Risks/benefits/alternative treatments discussed with patient and he gave informed consent. HR 112 bpm, BP 115/70 mmHg and pulse ox 93% on 2 L/M oxygen. Defibrillator pads placed on anterior and posterior chest. Sedation medication given. 200 J biphasic synchonized energy administered with successfor presybeterian of sinus rhythm. HR 60 bpm, BP 105/65 mmHg. Patient tolerated procedure well. No complications. Sedation: Fentanyl 50 mcg and Versed 5 mg IV Conclusion: 1. Successful DC cardioversion from atrial flutter to Sinus rhythm.
--- NOTE | 2019-12-31 09:45 | SUR.PHASEII ---
0930-pt given D/C orders and instructions. Questions answered and verbalized understanding. AOx4. PIV removed intact. Taken via wheelchair to waiting vehicle. No distress noted or verbalized at time of departure.
--- NOTE | 2019-12-31 11:12 | ECG_ITS ---
Measurements Intervals [place] Rate: 73 P: 38 SD: 217 QRS: -19 QRSD: 114 T: 65 QT: 411 QTc: 454 Interpretive Statements SINUS RHYTHM WITH FIRST DEGREE AV BLOCK INFERIOR INFARCT, AGE INDETERMINATE BORDERLINE T WAVE ABNORMALITY- ANT/LAT LEADS ABNORMAL ECG Electronically Signed On 12-31-2019 11:47:21 MAINTENANCE SHOP TECHNICIAN by Gus Robison D.O.
== END 2019-12-31 09:35 | disposition home or self-care (01) ==
PROVIDERS: PCP Emergency Medicine; Visit Provider Internal Medicine Cardiovascular Disease
PROC: 5A2204Z Restoration of Cardiac Rhythm, Single (ICD-10-PCS; principal; 2019-12-31 08:00)
DX: I48.92 Unspecified atrial flutter (principal); I25.10 Atherosclerotic heart disease of native coronary artery without angina pectoris; I25.2 Old myocardial infarction; I10 Essential (primary) hypertension; E11.51 Type 2 diabetes mellitus with diabetic peripheral angiopathy without gangrene; E11.40 Type 2 diabetes mellitus with diabetic neuropathy, unspecified; J44.9 Chronic obstructive pulmonary disease, unspecified; F17.210 Nicotine dependence, cigarettes, uncomplicated; E78.5 Hyperlipidemia, unspecified; F31.9 Bipolar disorder, unspecified; D64.9 Anemia, unspecified; F41.8 Other specified anxiety disorders; G40.909 Epilepsy, unspecified, not intractable, without status epilepticus; Z85.46 Personal history of malignant neoplasm of prostate; Z86.718 Personal history of other venous thrombosis and embolism; Z86.73 Personal history of transient ischemic attack (TIA), and cerebral infarction without residual deficits; Z95.1 Presence of aortocoronary bypass graft
CPT/HCPCS: 36415; 80048; 83735; 92960; 93005; A9270; J2250; J3010; J7040

== ENCOUNTER 2020-04-10 08:38 | Emergency (ER) | payer OTHER, SELFPAY ==
--- NOTE | ~2020-04-10 | CT_ITS ---
EXAMINATION: CT abdomen pelvis w con DATE: 04/10/2020 09:38 INDICATION: Abdominal pain TECHNIQUE: Computed tomography (CT) of the abdomen and pelvis was performed with 100 cc Omnipaque 350 intravenous contrast. Automated exposure control and iterative reconstruction technique were employe d. Exam dose: 876.63 mGy-cm total exam DLP. COMPARISON: 09/17/2019 CT abdomen pelvis FINDINGS: Status post sternotomy. There is mild discoid atelectasis or scarring at the lower lobes. N o infiltrate or consolidation in the lower lung zones. Normal heart size. No pericardial or pleural effusion. Hepatic steatosis. No hepatic or splenic, pancreatic space-occupying mass lesion. No bile duct or solis creatic duct dilatation. The gallbladder is contracted. Normal right adrenal gland. Probable small stable left adrenal adenoma. No renal mass lesion or urinary tract calculus or hydroureteronephrosis. The urinary bladder is unrem arkable. There is mild prostate enlargement and calcification. There is atherosclerotic calcification of the abdominal aorta and iliac arteries. The right iliac art byron stent, possibly thrombosed. No intraperitoneal or retroperitoneal or pelvic mass lesion or adenop athy or ascites. Normal appendix. No bowel obstruction or intraperitoneal free air. Small fat-containing umbilical hernia. Degenerative changes of the thoracic and lumbar spine including severe degenerative disc disease and associated mild retrolisthesis at L5-S1. Bilateral hip osteoarthritis. IMPRESSION: Hepatic steatosis Right iliac artery stent, possibly thrombosed Reviewed, dictated and finalized at [facility] Reviewed, dictated and finalized at [facility].
[2020-04-10] MEDS: SODIUM CHLORIDE 0.9% IV 1,000 ML 999 ML IV CONT (08:57)
[2020-04-10 09:05] LABS: Basophils Absolute Auto 0.1 K/mm3 (0.0-0.1); Eosinophils Absolute Auto 0.3 K/mm3 (0-0.3); Eosinophils Percent Auto 3.6 % (0-4.4); Hematocrit 49.4 % (42.0-52.0); Hemoglobin 16.3 g/dL (14.0-18.0); Immature Granulocyte Absolute 0.05 K/mm3 (0.00-0.031); Immature Granulocyte Percent A 0.6 % (0-0.5); Lymphocytes Absolute Auto 2.27 K/mm3 (0.9-3.2); Lymphocytes Percent Auto 29.1 % (18.3-44.2); Mean Corpuscular Hemoglobin 30.9 pg (26-34); Mean Corpuscular Volume 93.7 fl (80-100); Mean Platelet Volume 10.6 fl (7.4-10.4); Monocytes Absolute Auto 0.5 K/mm3 (0.1-0.6); Monocytes Percent Auto 6.7 % (2.6-8.5); Neutrophils Absolute Auto 4.6 K/mm3 (1.3-6.7); Platelet Count Result 198 k/mm3 (150-375); Red Blood Count 5.27 M/mm3 (4.6-6.20); Red Cell Distribution Width 13.8 % (11.5-14.5); White Blood Count 7.8 K/mm3 (4.5-10.0)
[2020-04-10 09:08] LABS: Add Urine Microscopic? YES; Appearance Urine Clear (Clear); Bilirubin Urine Negative (Negative); Blood Urine 3+ (Negative); Color Urine Straw (Yellow); Glucose Urine UA 3+ mg/dL (Negative); Ketones Urine Negative (Negative); Leukocyte Esterase Ur Negative LEU/UL (Negative); Nitrate Urine Negative (Negative); Protein Urine Negative (Negative); RBC Urine >75 /hpf (0-2); Squamous Epithelial Cell Urine Rare /hpf (Few); Urobilinogen Urine Negative mg/dL (<2.0); WBC Urine 0-3 /hpf
[2020-04-10 09:11] LABS: Specific Grav Ur 1.032 (1.001-1.035)
[2020-04-10 09:14] LABS: INR 0.9; Prothrombin Time 11.6 Seconds (11.1-14.7)
[2020-04-10 09:17] LABS: Alanine Aminotransferase 26 U/L (4-50); Albumin Level 4.4 g/dL (3.5-5.1); Alkaline Phosphatase 112 U/L (38-126); Aspartate Amino Transferase 24 U/L (17-59); Bilirubin,Total 0.2 mg/dL (0.2-1.3); Blood Urea Nitrogen 19 mg/dL (9-20); Calcium 9.1 mg/dL (8.4-10.2); Carbon Dioxide 26 mmol/L (22-30); Chloride 98 mmol/L (98-107); Estimated Glomerular Filt Rate > 60; Glucose 489 mg/dL (75-110); Lactic Acid Reflex 1.6 mmol/L (0.7-2.1); Potassium 4.3 mmol/L (3.4-5.0); Sodium 133 mmol/L (137-145)
[2020-04-10 11:07] LABS: Glucose Point of Care 370 (65-105)
[2020-04-10 11:40] VITALS: BP 130/92; PULSE 102; RESP 20; O2SAT 97
--- NOTE | 2020-04-10 12:01 | ED.ABDPAIN ---
HPI - Abdominal Pain General Chief Complaint: Urogenital-Male Stated Complaint: abd pain Source: RN notes reviewed History of Present Illness HPI narrative: Patient presents emergency department from home for blood in his urine. Patient states symptoms began yesterday. Patient states that he had an episode of blood in his urine yesterday as well as an episode of dark blood in his urine today. Patient states that he does have lower abdominal pain that radiates down to the penis today. He denies any fevers or chills chest pain shortness of breath or any other symptoms. Patient states that he is unsure if he is having blood in his stool he states he has had no diarrhea Related Data Home Medications Medication Instructions Recorded Confirmed albuterol sulfate 90 mcg/actuation 2 puff INHALATION Q4H PRN 10/06/19 01/08/20 aerosol inhaler aspirin 81 mg tablet,delayed 81 mg PO DAILY 10/06/19 01/08/20 release atorvastatin 40 mg tablet 40 mg PO DAILY 10/06/19 01/08/20 ferrous sulfate 325 mg (65 mg 325 mg PO BID 10/06/19 01/08/20 iron) tablet hydrocodone 7.5 mg-acetaminophen 1 tablet PO Q6H PRN 10/06/19 01/08/20 325 mg tablet levetiracetam 1,000 mg tablet 1,000 mg PO Q12H 10/06/19 01/08/20 ranolazine 500 mg tablet,extended 500 mg PO Q12H 10/06/19 01/08/20 release,12 hr sertraline 100 mg tablet 100 mg PO DAILY 10/06/19 01/08/20 alprazolam 1 mg tablet 1 mg PO BID PRN tablet 10/07/19 01/08/20 famotidine 20 mg tablet 20 mg PO BID 10/07/19 01/08/20 gabapentin 300 mg capsule 300 mg PO BID cap 10/07/19 01/08/20 triamcinolone acetonide 0.1 % 1 applic TOPICAL BID 10/07/19 01/08/20 topical cream Incruse Ellipta 1 inh INHALATION DAILY 10/13/19 01/08/20 insulin glargine 100 unit/mL (3 50 unit SUBCUT HS ml 12/10/19 01/08/20 mL) subcutaneous pen Allergies Allergy/AdvReac Type Severity Reaction Status Date / Time glimepiride Allergy Intermediate Rash Verified 04/10/20 08:57 codeine Allergy Unknown Unknown Verified 04/10/20 08:57 glyburide Allergy Unknown Unknown Verified 04/10/20 08:57 metformin Allergy Unknown Unknown Verified 04/10/20 08:57 Review of Systems Review of Systems: Narrative: Gen.: Denies fevers or chills Eyes: Denies eye pain or visual change ENT: Denies congestion Respiratory: Denies shortness of breath or cough CV: Denies chest pain or palpitations GI: Reports abdominal pain, denies nausea, emesis or diarrhea reports hematuria Musculoskeletal: Denies back pain or muscle pain Neuro: Denies numbness, tingling, weakness or focal weakness Skin: Denies rash Except as documented, all other systems reviewed and negative [facility] Past Medical History Medical History Anemia Ankle fracture, left Anxiety Arthritis Asthma Bipolar disorder COPD (chronic obstructive pulmonary disease) CVA (cerebral vascular accident) Deficient knowledge of leg surgery Depression Diabetes Elevated lipids GI bleed Headache, migraine History of radiation therapy Hypertension Liver disease Lupus Mitral valve prolapse Myocardial infarction Pneumonia Portal vein thrombosis Prostate cancer Seizure Seizure disorder TIA (transient ischemic attack) Surgical History Surgical History History of heart surgery History of tonsillectomy Hx of CABG Social History Social History Smoking packs per day: 0.25 Smoking cigarettes per day: 5.0 Years smoked: 40 Smoking pack-years: 10.00 Smoking status: Current every day smoker Tobacco type: cigarettes Alcohol intake: former Substance use: unknown Substance use type: does not use Gender identity (if verbalized by the patient): Male Spiritual care concerns: No Agree to blood products: Yes Exam Narrative: Exam Narrative: APPEARANCE: No acute distress, nontoxic, resting in bed EYES: EOMI HEENT
[2020-04-10 12:20] VITALS: BP 124/93; PULSE 106; RESP 20; O2SAT 96
== END 2020-04-10 12:30 | disposition home or self-care (01) ==
PROVIDERS: Emergency Provider Emergency Medicine; PCP Emergency Medicine
DX: R31.9 Hematuria, unspecified (principal); R10.9 Unspecified abdominal pain; F17.210 Nicotine dependence, cigarettes, uncomplicated; I25.10 Atherosclerotic heart disease of native coronary artery without angina pectoris; Z95.1 Presence of aortocoronary bypass graft; Z86.73 Personal history of transient ischemic attack (TIA), and cerebral infarction without residual deficits; M19.90 Unspecified osteoarthritis, unspecified site; J44.9 Chronic obstructive pulmonary disease, unspecified; Z79.82 Long term (current) use of aspirin; Z79.4 Long term (current) use of insulin; D64.9 Anemia, unspecified; F31.9 Bipolar disorder, unspecified; E11.9 Type 2 diabetes mellitus without complications; I10 Essential (primary) hypertension; I25.2 Old myocardial infarction; I34.1 Nonrheumatic mitral (valve) prolapse; Z85.46 Personal history of malignant neoplasm of prostate; Z92.3 Personal history of irradiation
CPT/HCPCS: 36415; 51700; 74177; 80053; 81001; 82948; 83605; 85025; 85610; 85730; 96361; 96365; 99283; 99284; J0131; J7030; Q9967

== ENCOUNTER 2020-04-10 16:33 | Emergency (ER) | payer OTHER, SELFPAY ==
[2020-04-10 16:29] VITALS: PULSE 92; RESP 20; TEMP 36.9; O2SAT 98
[2020-04-10] MEDS: LIDOCAINE HCL 2% GEL UROJET 10 ML PKG (17:02)
[2020-04-10 18:11] LABS: Basophils Absolute Auto 0.1 K/mm3 (0.0-0.1); Basophils Percent Auto 0.9 % (0.2-1.2); Eosinophils Absolute Auto 0.2 K/mm3 (0-0.3); Hematocrit 44.9 % (42.0-52.0); Hemoglobin 15.1 g/dL (14.0-18.0); Immature Granulocyte Absolute 0.04 K/mm3 (0.00-0.031); Immature Granulocyte Percent A 0.6 % (0-0.5); Lymphocytes Absolute Auto 1.97 K/mm3 (0.9-3.2); Lymphocytes Percent Auto 29.9 % (18.3-44.2); Mean Corpuscular HGB Conc 33.6 g/dl (32-36); Mean Corpuscular Hemoglobin 31.5 pg (26-34); Mean Corpuscular Volume 93.5 fl (80-100); Mean Platelet Volume 10.7 fl (7.4-10.4); Monocytes Absolute Auto 0.4 K/mm3 (0.1-0.6); Monocytes Percent Auto 6.7 % (2.6-8.5); Neutrophils Absolute Auto 3.9 K/mm3 (1.3-6.7); Neutrophils Percent Auto 58.9 % (45.5-73.1); Platelet Count Result 154 k/mm3 (150-375); Red Cell Distribution Width 13.9 % (11.5-14.5); White Blood Count 6.6 K/mm3 (4.5-10.0)
--- NOTE | 2020-04-10 18:20 | ED.GENADULT ---
HPI - General Adult General Chief complaint: Urogenital-Male Stated complaint: Blood in urine Time Seen by Provider: 04/10/20 16:39 Source: RN notes reviewed History of Present Illness HPI narrative: Patient presents emergency department from home via EMS for hematuria. Patient was seen in emergency department earlier today had work-up at that time within normal limits for hematuria he had had some blood at the tip of his penis that time. The patient went home and states he continued to have some blood coming from his penis with clots coming out of his urethra. He states pain in the penis itself denies any abdominal pain denies any fevers or chills nausea vomiting or any other symptoms. Patient states he is able to urinate Related Data Home Medications Medication Instructions Recorded Confirmed albuterol sulfate 90 mcg/actuation 2 puff INHALATION Q4H PRN 10/06/19 01/08/20 aerosol inhaler aspirin 81 mg tablet,delayed 81 mg PO DAILY 10/06/19 01/08/20 release atorvastatin 40 mg tablet 40 mg PO DAILY 10/06/19 01/08/20 ferrous sulfate 325 mg (65 mg 325 mg PO BID 10/06/19 01/08/20 iron) tablet hydrocodone 7.5 mg-acetaminophen 1 tablet PO Q6H PRN 10/06/19 01/08/20 325 mg tablet levetiracetam 1,000 mg tablet 1,000 mg PO Q12H 10/06/19 01/08/20 ranolazine 500 mg tablet,extended 500 mg PO Q12H 10/06/19 01/08/20 release,12 hr sertraline 100 mg tablet 100 mg PO DAILY 10/06/19 01/08/20 alprazolam 1 mg tablet 1 mg PO BID PRN tablet 10/07/19 01/08/20 famotidine 20 mg tablet 20 mg PO BID 10/07/19 01/08/20 gabapentin 300 mg capsule 300 mg PO BID cap 10/07/19 01/08/20 triamcinolone acetonide 0.1 % 1 applic TOPICAL BID 10/07/19 01/08/20 topical cream Incruse Ellipta 1 inh INHALATION DAILY 10/13/19 01/08/20 insulin glargine 100 unit/mL (3 50 unit SUBCUT HS ml 12/10/19 01/08/20 mL) subcutaneous pen Allergies Allergy/AdvReac Type Severity Reaction Status Date / Time glimepiride Allergy Intermediate Rash Verified 04/10/20 08:57 codeine Allergy Unknown Unknown Verified 04/10/20 08:57 glyburide Allergy Unknown Unknown Verified 04/10/20 08:57 metformin Allergy Unknown Unknown Verified 04/10/20 08:57 Review of Systems Review of Systems: Narrative: Gen.: Denies fevers or chills ENT: Denies congestion Respiratory: Denies shortness of breath or cough CV: Denies chest pain or palpitations GI: Denies abdominal pain nausea, emesis or diarrhea see HPI Musculoskeletal: Denies back pain or muscle pain Neuro: Denies numbness, tingling, weakness or focal weakness Skin: Denies rash Except as documented, all other systems reviewed and negative [facility] Surgical History Surgical History History of heart surgery History of tonsillectomy Hx of CABG Social History Social History Smoking packs per day: 0.25 Smoking cigarettes per day: 5.0 Years smoked: 40 Smoking pack-years: 10.00 Smoking status: Current every day smoker Tobacco type: cigarettes Alcohol intake: former Substance use: unknown Substance use type: does not use Gender identity (if verbalized by the patient): Male Spiritual care concerns: No Agree to blood products: Yes Exam Narrative: Exam Narrative: APPEARANCE: No acute distress, nontoxic, resting in bed EYES: EOMI HEENT: Normocephalic, atraumatic, OMM RESPIRATORY: No respiratory distress Clear to auscultation bilaterally with no rhonchi wheezing or rales. CARDIOVASCULAR: Regular rate and rhythm without murmurs rubs or gallops. ABDOMINAL: Soft, nontender, nondistended, no rebound or guarding : Uncircumcised male no phimosis paraphimosis the urethra does have small amount of blood clot present, there is no testicular tenderness no scrotal swelling or erythema MUSCULOSKELETAl: Moves all extremities. NEURO: Awake and alert. Following commands, speech normal, no focal deficits SKIN:: Wa
[2020-04-10 18:32] VITALS: BP 132/70; PULSE 80; RESP 20; TEMP 36.7; O2SAT 99
--- NOTE | 2020-04-10 18:47 | PC.NURSE ---
LEG BAG ATTACHED TO BY LINDSEY WHICH PT IS LEAVING WITH.
[2020-04-10 19:00] VITALS: BP 140/70; PULSE 20; RESP 18; TEMP 36.7; O2SAT 98
== END 2020-04-10 19:02 | disposition home or self-care (01) ==
PROVIDERS: Emergency Provider Emergency Medicine; PCP Emergency Medicine
DX: R31.9 Hematuria, unspecified (principal); Z95.1 Presence of aortocoronary bypass graft; I25.10 Atherosclerotic heart disease of native coronary artery without angina pectoris; F17.210 Nicotine dependence, cigarettes, uncomplicated; Z79.4 Long term (current) use of insulin; Z79.82 Long term (current) use of aspirin; Z86.73 Personal history of transient ischemic attack (TIA), and cerebral infarction without residual deficits; M19.90 Unspecified osteoarthritis, unspecified site; J44.9 Chronic obstructive pulmonary disease, unspecified; D64.9 Anemia, unspecified; F31.9 Bipolar disorder, unspecified; E11.9 Type 2 diabetes mellitus without complications; I10 Essential (primary) hypertension; I25.2 Old myocardial infarction; I34.1 Nonrheumatic mitral (valve) prolapse; Z85.46 Personal history of malignant neoplasm of prostate; Z92.3 Personal history of irradiation
CPT/HCPCS: 36415; 51700; 85025; 99283

== ENCOUNTER 2020-04-12 05:11 | Emergency (ER) | payer OTHER, SELFPAY ==
[2020-04-12 05:10] VITALS: BP 136/97; PULSE 65; RESP 18; TEMP 36.9; O2SAT 96
--- NOTE | 2020-04-12 05:30 | ED.MALEGU ---
HPI - Male Genitourinary General Chief complaint: Urogenital-Male Stated complaint: smith problem Time Seen by Provider: 04/12/20 05:18 History of Present Illness HPI Narrative: Presents c/o penile pain. He was seen here twice on the for hematuria. On the 2nd visit he had a smith placed and flushed. They removed multiple clots from the bladder and left the smith in place. He now returns with severe pain in his penis. He says the pain has been there ever since the catheter was placed, but became worse this morning when he accidentally pulled on the catherter. He says that he wants the catheter removed now. Related Data Home Medications Medication Instructions Recorded Confirmed albuterol sulfate 90 mcg/actuation 2 puff INHALATION Q4H PRN 10/06/19 01/08/20 aerosol inhaler aspirin 81 mg tablet,delayed 81 mg PO DAILY 10/06/19 01/08/20 release atorvastatin 40 mg tablet 40 mg PO DAILY 10/06/19 01/08/20 ferrous sulfate 325 mg (65 mg 325 mg PO BID 10/06/19 01/08/20 iron) tablet hydrocodone 7.5 mg-acetaminophen 1 tablet PO Q6H PRN 10/06/19 01/08/20 325 mg tablet levetiracetam 1,000 mg tablet 1,000 mg PO Q12H 10/06/19 01/08/20 ranolazine 500 mg tablet,extended 500 mg PO Q12H 10/06/19 01/08/20 release,12 hr sertraline 100 mg tablet 100 mg PO DAILY 10/06/19 01/08/20 alprazolam 1 mg tablet 1 mg PO BID PRN tablet 10/07/19 01/08/20 famotidine 20 mg tablet 20 mg PO BID 10/07/19 01/08/20 gabapentin 300 mg capsule 300 mg PO BID cap 10/07/19 01/08/20 triamcinolone acetonide 0.1 % 1 applic TOPICAL BID 10/07/19 01/08/20 topical cream Incruse Ellipta 1 inh INHALATION DAILY 10/13/19 01/08/20 insulin glargine 100 unit/mL (3 50 unit SUBCUT HS ml 12/10/19 01/08/20 mL) subcutaneous pen Allergies Allergy/AdvReac Type Severity Reaction Status Date / Time glimepiride Allergy Intermediate Rash Verified 04/10/20 08:57 codeine Allergy Unknown Unknown Verified 04/10/20 08:57 glyburide Allergy Unknown Unknown Verified 04/10/20 08:57 metformin Allergy Unknown Unknown Verified 04/10/20 08:57 Review of Systems Review of Systems: All systems reviewed & are unremarkable except as noted in HPI and below Cardiovascular: Cardiovascular: Reports no additional cardiovascular complaints [facility] Past Medical History Medical History Anemia Ankle fracture, left Anxiety Arthritis Asthma Bipolar disorder COPD (chronic obstructive pulmonary disease) CVA (cerebral vascular accident) Deficient knowledge of leg surgery Depression Diabetes Elevated lipids GI bleed Headache, migraine History of radiation therapy Hypertension Liver disease Lupus Mitral valve prolapse Myocardial infarction Pneumonia Portal vein thrombosis Prostate cancer Seizure Seizure disorder TIA (transient ischemic attack) Surgical History Surgical History History of heart surgery History of tonsillectomy Hx of CABG Family History Family History Sibling Parkinson disease Brain cancer Mother Diabetes mellitus Cancer Social History Social History Smoking packs per day: 0.25 Smoking cigarettes per day: 5.0 Years smoked: 40 Smoking pack-years: 10.00 Smoking status: Current every day smoker Tobacco type: cigarettes Alcohol intake: former Substance use: unknown Substance use type: does not use Gender identity (if verbalized by the patient): Male Spiritual care concerns: No Agree to blood products: Yes Exam Const: General: healthy appearing, no acute distress and alert Orientation/consciousness: patient oriented x3 HENMT: Head: normal to inspection Resp: Effort & Inspection: normal respiratory effort Auscultation: clear to auscultation bilaterally, no rales, no rhonchi and no wheezes Cardio: Rate:
--- NOTE | 2020-04-12 06:12 | PC.NURSE ---
Patient's smith removed, no blood clots noted.
[2020-04-12 06:18] VITALS: BP 120/83; PULSE 97; RESP 18; O2SAT 96
== END 2020-04-12 06:18 | disposition home or self-care (01) ==
PROVIDERS: Emergency Provider Emergency Medicine; PCP Emergency Medicine
DX: D64.9 Anemia, unspecified (principal); M19.90 Unspecified osteoarthritis, unspecified site; J44.9 Chronic obstructive pulmonary disease, unspecified; Z86.73 Personal history of transient ischemic attack (TIA), and cerebral infarction without residual deficits; E11.9 Type 2 diabetes mellitus without complications; I10 Essential (primary) hypertension; K76.9 Liver disease, unspecified; I25.2 Old myocardial infarction; I25.10 Atherosclerotic heart disease of native coronary artery without angina pectoris; Z95.1 Presence of aortocoronary bypass graft; Z85.46 Personal history of malignant neoplasm of prostate; Z92.3 Personal history of irradiation; F31.9 Bipolar disorder, unspecified; F41.9 Anxiety disorder, unspecified; Z79.4 Long term (current) use of insulin; Z79.82 Long term (current) use of aspirin; F17.210 Nicotine dependence, cigarettes, uncomplicated
CPT/HCPCS: 99282

== ENCOUNTER 2020-09-09 08:16 | Outpatient (CLI) | payer OTHER, SELFPAY ==
--- NOTE | ~2020-09-09 | NM_ITS ---
EXAMINATION: NM je stress w perfusion DATE: 09/09/2020 12:28 INDICATION: Chest pain. TECHNIQUE: Rest images were obtained following intravenous administration of 10.4 mCi Tc99m tetrofosm in (Myoview). The patient was infused intravenously with Lexiscan (regadenoson). Then, 29.2 mCi Tc99m tetrofosmin (Myoview) was administered intravenously, and supine and prone stress images were obtain ed. Data was reconstructed into short axis and horizontal and vertical long axis SPECT images. Gated SPECT images were also obtained. COMPARISON: Myocardial perfusion imaging 07/31/2018, CT abdomen and pelvis 04/10/2020 FINDINGS: There is a small, moderate-severity mixed fixed and reversible perfusion defect involving a pical inferior segment of left ventricle, consistent with mixed infarct and ischemia. There is no se gmental wall motion abnormality. Left ventricular ejection fraction measures 57%. IMPRESSION: 1. Small area of moderate-severity mixed infarct and ischemia involving apical inferior segment of le ft ventricle. 2. Normal left ventricular ejection fraction measuring 57%. Reviewed, dictated and finalized at location A. IMPRESSION: 1. Small area of moderate-severity mixed infarct and ischemia involving apical inferior segment of left ventricle. 2. Normal left ventricular ejection fraction measuring 57%.
--- NOTE | 2020-09-09 09:28 | EST_ITS ---
Patient Info Name: Martin Mcwilliams Age: 60 years : 1960 Gender: Male Ht: 73 in Wt: 230 lbs BSA: 2.34 m2 Exam Date: 09/09/2020 10:33 AM Exam Location: [facility] Stress Patient Status: Outpatient Admit Date: 09/09/2020 Staff Ordering Physician: Gus Robison DO Attending Provider: Gus Robison DO Exercise Technologist: Penny Ace RDCS Exercise Physician: Gus Robison DO Exam Type: CA stress je w NM Study Info Indications Z01.818 - Encounter for other preprocedural examination R07.9 - Chest pain, unspecified A regadenoson stress test was performed. Summary 1. 1. Negative lexiscan stress test for ischemic ST changes by ECG criteria. 2. 2. Stable hemodynamics throughout the test. 3. 3. Nuclear scan to follow and will be reported separately. Please correlat with it. 4. 4. Patient informed of the above results. Protocol: Lexiscan Stress ECG Details Stage: REST Duration (min): 2 min : 39 sec HR (bpm): 73 SBP (mmHg): 97 DBP (mmHg): 60 Stage: REST Duration (min): 9 min : 20 sec HR (bpm): 74 SBP (mmHg): 97 DBP (mmHg): 60 Stage: STAGE 1 Duration (min): 1 min : 0 sec HR (bpm): 70 SBP (mmHg): 95 DBP (mmHg): 67 Stage: RECOVERY Duration (min): 1 min : 0 sec HR (bpm): 87 SBP (mmHg): 90 DBP (mmHg): 62 Stage: RECOVERY Duration (min): 2 min : 0 sec HR (bpm): 84 SBP (mmHg): 90 DBP (mmHg): 62 Stage: RECOVERY Duration (min): 3 min : 0 sec HR (bpm): 83 SBP (mmHg): 110 DBP (mmHg): 62 Stage: RECOVERY Duration (min): 4 min : 0 sec HR (bpm): 82 SBP (mmHg): 110 DBP (mmHg): 62 Stage: RECOVERY Duration (min): 4 min : 44 sec HR (bpm): 82 SBP (mmHg): 100 DBP (mmHg): 58 Rest HR: 74 bpm Peak HR: 87 bpm Rest Sys BP: 97 mmHg Peak Sys BP: 110 mmHg Max Pred HR: 162 bpm % Max Pred HR: 54 % Target HR: 138 bpm Max RPP: 9,570 bpm*mmHg Termination Reason: Completed protocol Cardiac Symptoms: Shortness of breath, Dizziness Total Time: 1 min : 0 sec Rest Haq BP: 60 mmHg Peak Haq BP: 62 mmHg Total Dose: 0.4 mg Resting ECG Sinus rhythm, borderline T wave in diffuse leads. Stress ECG No ST changes. Arrhythmias None. Report Signatures
== END 2020-09-09 08:17 | disposition home or self-care (01) ==
PROVIDERS: PCP Emergency Medicine; Visit Provider Internal Medicine Cardiovascular Disease
DX: R07.9 Chest pain, unspecified (principal); Z01.818 Encounter for other preprocedural examination
CPT/HCPCS: 78452; 93017; A9502; J2785

== ENCOUNTER 2020-10-12 08:18 | Outpatient (CLI) | payer OTHER, SELFPAY ==
--- NOTE | 2020-10-12 08:58 | ECHO_ITS ---
Patient Info Name: Martin Mcwilliams Age: 60 years : 1960 Gender: Male Ht: 73 in Wt: 229 lbs BSA: 2.34 m2 HR: 70 bpm BP: 101 / 70 mmHg Heart Rhythm: Sinus Rhythm Technical Quality: Good Exam Date: 10/12/2020 9:14 AM Exam Location: [facility] Pulmonary Patient Status: Outpatient Admit Date: 10/12/2020 Staff Ordering Physician: Gus Robison DO Assistant Professor Of Music: Arsenio Rouse RDCS Attending Provider: Gus Robison DO Referring Physician: Ricki BUCKLEY; Exam Type: CA echo doppler color flow Study Info Indications I25.110 - Atherosclerotic heart disease of [place] coronary artery with unstable angina pectoris Complete two-dimensional, color flow and Doppler transthoracic echocardiogram is performed. History/Risk Factors CAD. Summary 1. Complete two-dimensional, color flow and Doppler transthoracic echocardiogram is performed. 2. Left ventricular chamber dimension is normal. 3. Left ventricular systolic function is normal, estimated at 50-55%. 4. The left ventricular diastolic function is grade II diastolic dysfunction. 5. E/e' 7 is not elevated. 6. Right ventricular systolic function is mildly reduced with TAPSE 1.6 cm. 7. No pulmonary hypertension, estimated pulmonary arterial systolic pressure is 31 mmHg. 8. There is trace pulmonic regurgitation. Left Ventricle E/e' 7 is not elevated. Left ventricular chamber dimension is normal. Left ventricular systolic function is normal, estimated at 50-55%. The left ventricular diastolic function is grade II diastolic dysfunction. Right Ventricle Right ventricular systolic function is mildly reduced with TAPSE 1.6 cm. Right ventricular chamber dimension is normal. Left Atria Left atrial chamber dimension is normal. Right Atria Right atrial chamber dimension is normal. Aortic Valve The aortic valve is trileaflet. There is no aortic valve stenosis. There is no aortic valve regurgitation. Pulmonic Valve There is trace pulmonic regurgitation. Mitral Valve There is no mitral valve stenosis. There is no mitral valve regurgitation. Tricuspid Valve There is no tricuspid valve regurgitation. No pulmonary hypertension, estimated pulmonary arterial systolic pressure is 31 mmHg. Pericardium/Pleural There is no pericardial effusion. Inferior Vena Cava Normal inferior vena cava with >50% collapse upon inspiration consistent with normal right atrial pressure, 5 mmHg. Aorta The aortic root size at the sinus of Valsalva is normal. Left Ventricular Outflow Tract Name Value Normal LVOT 2D LVOT Diameter 2.3 cm LVOT Doppler LVOT Peak Gradient 2 mmHg LVOT Mean Gradient 1 mmHg LVOT VTI 17 cm LVOT VTI/AV VTI Ratio 0.9 LVOT Stroke Volume 69 ml LVOT CO 4.4 l/min LVOT CI 1.9 l/min/m2 Mitral Valve Name Value
== END 2020-10-12 08:19 | disposition home or self-care (01) ==
PROVIDERS: PCP Emergency Medicine; Visit Provider Internal Medicine Cardiovascular Disease
DX: I25.10 Atherosclerotic heart disease of native coronary artery without angina pectoris (principal)
CPT/HCPCS: 93306

== ENCOUNTER 2020-11-15 09:40 | Outpatient (CLI) | payer OTHER, SELFPAY ==
--- NOTE | ~2020-11-15 | CT_ITS ---
EXAMINATION: CT lung screening DATE: 11/15/2020 09:59 INDICATION: Personal history of tobacco dependence, current smoker with 40 pack year history TECHNIQUE: Computed tomography (CT) of the chest was performed without intravenous contrast. The dose -length product (DLP) was 231.93 mGy-cm. Automated exposure control and iterative reconstruction tech [employer] were employed. COMPARISON: 09/17/2019 FINDINGS: There is moderate emphysema. No suspicious pulmonary nodules are identified. Calcified pulm onary nodules are consistent with old granulomatous disease. There is mild atelectasis of the lower l obes. No pleural effusion or pneumothorax is identified. The heart size is normal. There are changes of coronary artery bypass grafting. There has been interval insertion of a partially imaged vascular bypass graft in the right anterolateral chest wall. There is a 3 mm nonobstructing stone of the left kidney upper pole. There is moderate thoracic spondylosis. IMPRESSION: 1. Lung-RADS category 2: Benign appearance or behavior. Continue annual screening with noncontrast lo w-dose chest CT in 12 months. Reviewed, dictated and finalized at location A. HOUSE MANAGER IMPRESSION: 1. Lung-RADS category 2: Benign appearance or behavior. Continue annual screeni ng with noncontrast low-dose chest CT in 12 months.
== END 2020-11-15 09:41 | disposition home or self-care (01) ==
LOC: ANHIMG 09:45
PROVIDERS: PCP Emergency Medicine; Visit Provider Emergency Medicine
DX: Z12.2 Encounter for screening for malignant neoplasm of respiratory organs (principal); Z87.891 Personal history of nicotine dependence
CPT/HCPCS: G0297

== ENCOUNTER 2020-12-30 16:40 | Emergency (ER) | payer OTHER, SELFPAY ==
[2020-12-30] VITALS (20 sets, daily range): BP systolic 96–128; BP diastolic 53–89; PULSE 69–89; RESP 15–22; TEMP 37.1; O2SAT 93–100
--- NOTE | ~2020-12-30 | XR_ITS ---
EXAMINATION: XR chest 2V DATE: 12/30/2020 17:21 INDICATION: Left-sided chest pain TECHNIQUE: AP and lateral views of the chest are obtained. COMPARISON: 10/12/2019 the lungs are free of acute opacities. FINDINGS: The lungs are free of acute opacities. There is no pleural effusion or pneumothorax. The ca rdiomediastinal silhouette is normal. Median sternotomy wires and mediastinal surgical clips are seen , likely from prior coronary artery bypass grafting. IMPRESSION: 1. No acute cardiopulmonary abnormality. Reviewed, dictated and finalized at location A. [employer] ACCOUNTING [employer]NS[employer]
--- NOTE | 2020-12-30 16:53 | ECG_ITS ---
Measurements Intervals [place] Rate: 86 P: 50 IA: 176 QRS: -18 QRSD: 94 T: 101 QT: 347 QTc: 416 Interpretive Statements SINUS RHYTHM DELAYED PRECORDIAL R/S TRANSITION CONSIDER INFERIOR INFARCT, AGE INDETERMINATE BORDERLINE ST-T WAVE ABNORMALITY- ANTEROLAT/HIGH LAT LEADS BASELINE ARTIFACT- I, III, AVR, AVL, AVF, V6 ABNORMAL ECG Electronically Signed On 12-31-2020 10:08:57 CARDIAC NURSE PRACTITIONER by Gus Robison D.O.
--- NOTE | 2020-12-30 17:13 | PC.NURSE ---
this RN to room. patient in radiology.
[2020-12-30] MEDS: INSULIN HUMAN REGULAR (*BKC) 100 UNITS/ML 10 UNITS IV PUSH (17:35)
[2020-12-30] MEDS: SODIUM CHLORIDE 0.9% IV 1,000 ML 150 ML IV CONT (17:35)
[2020-12-30 18:03] LABS: Basophils Absolute Auto 0.1 K/mm3 (0.0-0.1); Basophils Percent Auto 0.8 % (0.2-1.2); Eosinophils Absolute Auto 0.3 K/mm3 (0-0.3); Eosinophils Percent Auto 3.5 % (0-4.4); Hematocrit 45.1 % (42.0-52.0); Hemoglobin 14.9 g/dL (14.0-18.0); Immature Granulocyte Absolute 0.03 K/mm3 (0.00-0.031); Immature Granulocyte Percent A 0.4 % (0-0.5); Lymphocytes Absolute Auto 1.61 K/mm3 (0.9-3.2); Lymphocytes Percent Auto 22.4 % (18.3-44.2); Mean Corpuscular Hemoglobin 31.1 pg (26-34); Mean Corpuscular Volume 94.2 fl (80-100); Mean Platelet Volume 10.5 fl (7.4-10.4); Monocytes Absolute Auto 0.5 K/mm3 (0.1-0.6); Monocytes Percent Auto 7.1 % (2.6-8.5); Neutrophils Absolute Auto 4.7 K/mm3 (1.3-6.7); Neutrophils Percent Auto 65.8 % (45.5-73.1); Platelet Count Result 177 k/mm3 (150-375); Red Blood Count 4.79 M/mm3 (4.6-6.20); Red Cell Distribution Width 13.2 % (11.5-14.5); White Blood Count 7.2 K/mm3 (4.5-10.0)
[2020-12-30 18:13] LABS: INR 0.9; Prothrombin Time 12.9 Seconds (11.1-14.7)
[2020-12-30 18:14] LABS: Partial Thromboplastin Time 31.3 SECONDS (22.3-36.8)
[2020-12-30 18:15] LABS: Alanine Aminotransferase 18 U/L (4-50); Albumin Level 3.9 g/dL (3.5-5.1); Alkaline Phosphatase 96 U/L (38-126); Anion Gap 6 mmol/L (8-16); Aspartate Amino Transferase 19 U/L (17-59); Bilirubin,Total 0.3 mg/dL (0.2-1.3); Blood Urea Nitrogen 24 mg/dL (9-20); Calcium 8.8 mg/dL (8.4-10.2); Carbon Dioxide 27 mmol/L (22-30); Chloride 102 mmol/L (98-107); Estimated CRCL calculation 86 ml/min; Estimated Glomerular Filt Rate > 60; Glucose 443 mg/dL (75-110); Potassium 4.5 mmol/L (3.4-5.0); Sodium 135 mmol/L (137-145)
[2020-12-30 18:26] LABS: Troponin I < 0.012 ng/mL (0.000-0.034)
[2020-12-30 18:50] LABS: Glucose Point of Care 394 (65-105)
[2020-12-30] MEDS: INSULIN HUMAN REGULAR (*BKC) 100 UNITS/ML 10 UNITS SUB-Q (19:08)
--- NOTE | 2020-12-30 19:10 | PC.NURSE ---
2nd dose insulin given. patient updated. ice water given. blanket given. resting on stretcher. denies needs. has call light in reach. on cardiac rehabilitation specialist.
[2020-12-30 20:40] LABS: Troponin I < 0.012 ng/mL (0.000-0.034)
[2020-12-30 21:49] LABS: Glucose Point of Care 321 (65-105)
--- NOTE | 2020-12-30 22:26 | ED.CHESTPAIN ---
HPI - Chest Pain General Chief Complaint: Chest Pain Stated Complaint: CP/High blood sugar Time Seen by Provider: 12/30/20 16:49 Source: patient Mode of arrival: EMS Limitations: no limitations History of Present Illness HPI narrative: 60-year old with a history of diabetes, CAD A. fib,, hypertension here with complaints of left arm numbness tingling sensation pain in the left shoulder for past 1-1/2-week however when he woke up this morning he states his pain was radiating into his left side of the chest and into the his arm. He denied much of chest pain no shortness of breath. No history of fever or chills. He states that every time he moves his arm he gets the pain radiating into his arm and into his neck. Patient states that he called Dr. Robison who recommended him to come to the emergency room. MD complaint: chest pain Pertinent past history: coronary artery disease Timing of current episode: constant Pain location: other (Left shoulder) Pain radiation: neck Severity: moderate Quality: aching Relieving factors: rest Exacerbating factors: nothing Risk Factors Coronary artery disease risk factors: diabetes, smoking history, hyperlipidemia and hypertension Related Data Home Medications Medication Instructions Recorded Confirmed albuterol sulfate 90 mcg/actuation 2 puff INHALATION Q4H PRN 10/06/19 12/03/20 aerosol inhaler aspirin 81 mg tablet,delayed 81 mg PO DAILY 10/06/19 12/03/20 release ferrous sulfate 325 mg (65 mg 325 mg PO BID 10/06/19 12/03/20 iron) tablet hydrocodone 7.5 mg-acetaminophen 1 tablet PO Q6H PRN 10/06/19 12/03/20 325 mg tablet levetiracetam 1,000 mg tablet 1,000 mg PO Q12H 10/06/19 12/03/20 sertraline 100 mg tablet 100 mg PO DAILY 10/06/19 12/03/20 alprazolam 1 mg tablet 1 mg PO BID PRN tablet 10/07/19 12/03/20 famotidine 20 mg tablet 20 mg PO BID 10/07/19 12/03/20 gabapentin 300 mg capsule 300 mg PO BID cap 10/07/19 12/03/20 triamcinolone acetonide 0.1 % 1 applic TOPICAL BID 10/07/19 12/03/20 topical cream Incruse Ellipta 1 inh INHALATION DAILY 10/13/19 12/03/20 insulin glargine 100 unit/mL (3 75 unit SUBCUT HS ml 10/07/20 12/03/20 mL) subcutaneous pen insulin lispro 100 unit/mL See Rx Instructions SUBCUT BID ml 10/07/20 12/03/20 subcutaneous pen Allergies Allergy/AdvReac Type Severity Reaction Status Date / Time glimepiride Allergy Intermediate Rash Verified 12/30/20 17:13 codeine Allergy Unknown Unknown Verified 12/30/20 17:13 glyburide Allergy Unknown Unknown Verified 12/30/20 17:13 metformin Allergy Unknown Unknown Verified 12/30/20 17:13 Review of Systems Review of Systems: All systems reviewed & are unremarkable except as noted in HPI and below Constitutional: Constitutional: Reports no additional constitutional complaints Eyes: Eyes: Reports no additional eye complaints ENT: Reports system reviewed and no additional complaints, except as documented Cardiovascular: Cardiovascular: Reports as per HPI Respiratory: Respiratory: Reports no additional respiratory complaints Gastrointestinal: Gastrointestinal: Reports no additional gastrointestinal complaints Musculoskeletal: Musculoskeletal: Reports as per HPI Neurologic: Reports system reviewed and no additional complaints, except as documented [facility] Past Medical History Medical History Anemia Ankle fracture, left Anxiety Arthritis Asthma Bipolar disorder COPD (chronic obstructive pulmonary disease) CVA (cerebral vascular accident) Deficient knowledge of leg surgery Depression Diabetes Elevated lipids GI bleed Headache, migraine History of radiation therapy Hypertension Liver disease Lupus Mitral valve prolapse Myocardial infarction Pneumonia Portal vein thrombosis Prostate cancer Seizure Seizure disorder TIA (transient ischemic attack) Surgical History Surgical History History of heart s
== END 2020-12-30 22:37 | disposition home or self-care (01) ==
PROVIDERS: Emergency Provider Family Medicine; PCP Emergency Medicine
DX: R07.89 Other chest pain (principal); E11.65 Type 2 diabetes mellitus with hyperglycemia; I25.10 Atherosclerotic heart disease of native coronary artery without angina pectoris; I48.91 Unspecified atrial fibrillation; F41.9 Anxiety disorder, unspecified; M19.90 Unspecified osteoarthritis, unspecified site; F31.9 Bipolar disorder, unspecified; Z86.73 Personal history of transient ischemic attack (TIA), and cerebral infarction without residual deficits; J44.9 Chronic obstructive pulmonary disease, unspecified; I10 Essential (primary) hypertension; K76.9 Liver disease, unspecified; I34.1 Nonrheumatic mitral (valve) prolapse; I25.2 Old myocardial infarction; Z85.46 Personal history of malignant neoplasm of prostate; Z92.3 Personal history of irradiation; G40.909 Epilepsy, unspecified, not intractable, without status epilepticus; Z95.1 Presence of aortocoronary bypass graft; F17.210 Nicotine dependence, cigarettes, uncomplicated; Z79.4 Long term (current) use of insulin; R94.31 Abnormal electrocardiogram [ECG] [EKG]
CPT/HCPCS: 36415; 71046; 80053; 82948; 84484; 85025; 85610; 85730; 93005; 96361; 96374; 99284; J1815; J7030

== ENCOUNTER 2021-10-10 09:43 | Outpatient (CLI) | payer OTHER, SELFPAY ==
--- NOTE | 2021-10-10 10:07 | ECG_ITS ---
Measurements Intervals [place] Rate: 76 P: 57 NV: 178 QRS: -14 QRSD: 102 T: 81 QT: 370 QTc: 417 Interpretive Statements SINUS RHYTHM LOW QRS VOLTAGE IN LIMB LEADS BORDERLINE T WAVE ABNORMALITY- ANTEROLAT/HIGH LAT LEADS BORDERLINE ECG Electronically Signed On 10-10-2021 10:54:20 SENIOR INFORMATION SECURITY ARCHITECT by Gus Robison D.O.
== END 2021-10-10 09:44 | disposition home or self-care (01) ==
PROVIDERS: PCP Emergency Medicine; Visit Provider Emergency Medicine
DX: I48.92 Unspecified atrial flutter (principal); R94.31 Abnormal electrocardiogram [ECG] [EKG]
CPT/HCPCS: 93005

== ENCOUNTER 2022-02-10 10:44 | Outpatient (CLI) | payer OTHER, SELFPAY ==
--- NOTE | ~2022-02-10 | MR_ITS ---
EXAMINATION: MR pelvis wo con DATE: 02/10/2022 11:59 INDICATION: Prostate cancer TECHNIQUE: Magnetic resonance imaging (MRI) of the pelvis was performed without intravenous contrast. [place] sequences of the pelvis included axial and coronal T2-weighted SS FSE, axial, sagittal and coronal 2D FIESTA, axial 2D FIESTA FS, axial SSFSE-IR LEROY, axial dual-echo T1-weighted FSPGR, axial and coronal T1 weighted LAVA, 3D axial T2 Cube, axial diffusion-weighted SE with apparent diffusion c oefficient (ADC) maps. COMPARISON: CT dated 04/10/2020 FINDINGS: Prostatomegaly measuring 4.5 x 3.0 cm. Bladder is normal. No pathologically enlarged pelvic or inguin al lymphadenopathy. Postoperative changes with scarring and surgical clips at the groin bilaterally w hich may be related to prior vascular surgery. There is a new bypass graft extending to the right brian in presumably the right axillary to femoral bypass graft. Mild sigmoid diverticulosis without adjacen t inflammatory change. Normal appendix. Severe lumbar spondylosis most prominent at L2-L3 and L5-S1. Aside from low signal intensity sclerotic Modic type III endplate changes at L5-S1 there is normal ma rrow signal. No evident osseous metastatic disease or other pathologic marrow replacing process. IMPRESSION: 1. Prostatomegaly. No evident metastatic disease. 2. Postoperative changes at the bilateral groin with likely right femoral-popliteal bypass graft. Reviewed, dictated and finalized at location A. IMPRESSION: 1. Prostatomegaly. No evident metastatic disease. 2. Postoperative changes at the bilateral groin with likely right femoral-popli teal bypass graft.
== END 2022-02-10 10:45 | disposition home or self-care (01) ==
LOC: ANHIMG 10:50
PROVIDERS: PCP Emergency Medicine
DX: C61 Malignant neoplasm of prostate (principal)
CPT/HCPCS: 72195

== ENCOUNTER 2022-03-21 09:03 | Outpatient (CLI) | payer OTHER, SELFPAY ==
--- NOTE | 2022-03-21 11:00 | NEURO_ITS ---
Impression: # Complains of gait dysfunction. History of neuropathy. 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 # Decreased motor unit potentials noted without fibrilations; compatible with chronic denervation. Nerve Conduction Studies Anti Sensory Summary Table Stim Site NR Peak (ms) P-T Amp (?V) Site1 Site2 Delta-P (ms) Dist (cm) Devendra (m/s) Left Sup Fibular Anti Sensory (Ant Lat Mall) NO RESPONSE 14 cm NR 14 cm Ant Lat Mall 16.0 Right Sup Fibular Anti Sensory (Ant Lat Mall) NO RESPONSE 14 cm NR 14 cm Ant Lat Mall 16.0 Left Sural Anti Sensory (Lat Mall) NO RESPONSE Calf NR Calf Lat Mall 16.0 Right Sural Anti Sensory (Lat Mall) NO RESPONSE Calf NR Calf Lat Mall 16.0 Motor Summary Table Stim Site NR Onset (ms) O-P Amp (mV) Site1 Site2 Delta-0 (ms) Dist (cm) Devendra (m/s) Left Peroneal Motor (Vastus Med) NO RESPONSE Ankle NR Popit Ankle 0.0 Popit NR Right Peroneal Motor (Vastus Med) NO RESPONSE Ankle NR Popit Ankle 0.0 Popit NR Left Tibial Motor (Abd Rios Brev) Ankle 4.5 0.4 Knee Ankle 13.2 45.0 34 Knee 17.7 0.1 Right Tibial Motor (Abd Rios Brev) Ankle 5.5 1.2 Knee Ankle 11.1 45.0 41 Knee 16.6 0.2 F Wave Studies NR F-Lat (ms) L-R F-Lat (ms) Left Peroneal (Mrkrs) (EDB) NO RESPONSE NR Right Peroneal (Mrkrs) (EDB) NO RESPONSE NR Left Tibial (Mrkrs) (Abd Hallucis) 60.12 1.52 Right Tibial (Mrkrs) (Abd Hallucis) 58.60 1.52 EMG Side Muscle Nerve Root Ins Act Fibs Amp Dur Recrt Comment Right AntTibialis Dp Br Fibular L4-5 Nml Nml Decr >12ms Reduced Right Gastroc Tibial S1-2 Nml Nml Nml >12ms Reduced Right Fibularis Long Sup Br Fibular L5-S1 Nml Nml Nml Nml Nml Right Flex Dig Long Tibial L5-S2 Nml Nml Nml Nml Nml Right Ext Dig Brev Dp Br Fibular L5, S1 Nml Nml Decr >12ms Reduced Left AntTibialis Dp Br Fibular L4-5 Nml Nml Decr >12ms Reduced Left Gastroc Tibial S1-2 Nml Nml Nml >12ms Reduced Left Fibularis Long Sup Br Fibular L5-S1 Nml Nml Nml Nml Nml Left Flex Dig Long Tibial L5-S2 Nml Nml Nml Nml Nml Left Ext Dig Brev Dp Br Fibular L5, S1 Nml Nml Decr >12ms Reduced Right Ext Dig Long Dp Br Fibular L5-S1 Nml Nml Decr >12ms Reduced Right QuadratusFem QuadFemoris L4-5, S1 Nml Nml Nml Nml Reduced Left Ext Dig Long Dp Br Fibular L5-S1 Nml Nml Decr >12ms Reduced Left QuadratusFem QuadFemoris L4-5, S1 Nml Nml Nml Nml Reduced MTDD
== END 2022-03-21 09:04 | disposition home or self-care (01) ==
LOC: ANHNEURO 09:05
PROVIDERS: PCP Emergency Medicine; Visit Provider Emergency Medicine
DX: G62.9 Polyneuropathy, unspecified (principal)
CPT/HCPCS: 95886; 95910

== ENCOUNTER 2022-03-29 09:22 | Outpatient (CLI) | payer OTHER, SELFPAY ==
--- NOTE | ~2022-03-29 | CT_ITS ---
EXAMINATION: CT lung screening DATE: 03/29/2022 09:44 INDICATION: Personal history of nicotine dependence, current smoker with 47 pack year history TECHNIQUE: Computed tomography (CT) of the chest was performed without intravenous contrast. The dose -length product (DLP) was 186.03 mGy-cm. Automated exposure control and iterative reconstruction tech [employer] were employed. COMPARISON: 11/07/2020 FINDINGS: There is moderate emphysema. There is a 6 mm nodule of the left upper lobe on image 47. The re is a 4 mm nodule of the left lower lobe on image 79. Calcified pulmonary nodules are consistent wi th old granulomatous disease. The lungs are free of acute airspace opacities. There is mild dependent atelectasis. No pleural effusion or pneumothorax is identified. No pathologically enlarged thoracic lymph nodes are identified. The heart size is normal. There is a vascular bypass graft in the right c hest wall which appears to be collapsed in its proximal portion. There is moderate thoracic spondylos is. IMPRESSION: 1. Lung-RADS category 4A: Suspicious. Findings for which additional diagnostic testing is recommended . Follow-up low-dose CT in three months is recommended. Reviewed, dictated and finalized at location A. IMPRESSION: 1. Lung-RADS category 4A: Suspicious. Findings for which additional diagnostic testing is recommended. Follow-up low-dose CT in three months is recommended.
== END 2022-03-29 09:23 | disposition home or self-care (01) ==
PROVIDERS: PCP Emergency Medicine; Visit Provider Emergency Medicine
DX: Z12.2 Encounter for screening for malignant neoplasm of respiratory organs (principal); Z87.891 Personal history of nicotine dependence; R91.8 Other nonspecific abnormal finding of lung field
CPT/HCPCS: 71271

== ENCOUNTER 2022-08-03 07:04 | Outpatient (CLI) | payer OTHER, SELFPAY ==
--- NOTE | ~2022-08-03 | CT_ITS ---
EXAMINATION: CT diagnostic chest wo con DATE: 08/03/2022 07:24 INDICATION: Solitary pulmonary nodule, abnormal lung cancer screening CT TECHNIQUE: Computed tomography (CT) of the chest was performed without intravenous contrast. The dose -length product (DLP) was 154.39 mGy-cm. Automated exposure control and iterative reconstruction tech [employer] were employed. COMPARISON: 03/29/2022, 11/15/2020 FINDINGS: The previously described 6 mm nodule of the left upper lobe is stable in size and slightly decreased in density. There is a stable 4 mm nodule of the left lower lobe. There is an enlarging 9 m m nodule in the superior segment of the left lower lobe on image 48. There is moderate emphysema. The lungs are free of acute opacities. No pleural effusion or pneumothorax. The heart size is normal. Ag ain noted is a vascular bypass graft of the right chest wall which is collapsed in its proximal porti on. There are no pathologically enlarged thoracic lymph nodes. There is moderate thoracic spondylosis . There is a 4 mm nonobstructing stone in the left kidney upper pole. IMPRESSION: 1. Enlarging 9 mm nodule in the superior segment of the left lower lobe concerning for primary bronch ogenic carcinoma. CT-guided biopsy is recommended. Reviewed, dictated and finalized at location B. IMPRESSION: 1. Enlarging 9 mm nodule in the superior segment of the left lower lobe concern ing for primary bronchogenic carcinoma. CT-guided biopsy is recommended.
== END 2022-08-03 07:05 | disposition home or self-care (01) ==
LOC: ANHIMG 07:08
PROVIDERS: PCP Emergency Medicine; Visit Provider Emergency Medicine
DX: R91.1 Solitary pulmonary nodule (principal)
CPT/HCPCS: 71250

== ENCOUNTER 2022-08-19 14:06 | Emergency (ER) | payer OTHER, SELFPAY ==
[2022-08-19] VITALS (9 sets, daily range): BP systolic 92–131; BP diastolic 56–80; PULSE 64–95; RESP 16–22; TEMP 37.1; O2SAT 94–99
--- NOTE | ~2022-08-19 | CT_ITS ---
EXAMINATION: CTA [facility] DATE: 08/19/2022 19:02 INDICATION: Right lower extremity arterial occlusion. TECHNIQUE: Computed tomographic angiography (CTA) of the pelvis and both lower extremities was perfor med with 150 mL Omnipaque-350 intravenous contrast. Automated exposure control and iterative reconstr uction technique were employed. The dose-length product was 774.81 mGy-cm. Maximum intensity projecti on 3D-reconstructions of the arteries were created by the technologist on a separate workstation. COMPARISON: CT abdomen and pelvis 04/10/2020. FINDINGS: PELVIC VASCULATURE: The distal portion of a superficial right-sided intra-abdominal graft that lands at the right common femoral artery is partially visualized and is occluded. Multiple stents present in the incompletely v isualized right common iliac artery extending into the external iliac artery, both of which are occlu ded. No flow seen in the right external iliac artery. No significant stenosis in the left common [place] c artery or the left internal and external iliac arteries. RIGHT LOWER EXTREMITY VASCULATURE: There is reconstitution of flow into the common femoral artery via a right lateral abdominal collater al. Near occlusive thrombus extending from the superficial abdominal graft severely narrows flow at t he bifurcation of the superficial femoral and deep femoral arteries. Occlusion at the trifurcation. M inimal and incomplete reconstitution of flow in a portion of the calcified peroneal artery. Minimal r econstitution of flow in the heavily calcified posterior tibial artery. 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 No severe stenosis. Three-vessel flow below the level of the ankl e. ADDITIONAL FINDINGS: None. IMPRESSION: Persistent occlusion of the right common iliac and external iliac artery grafts as well as the right internal iliac artery. Occluded superficial right lateral abdominal graft. Flow preserved to the comm on femoral artery via an abdominal collateral. Occluded trifurcation on the right. Minimal reconstitu tion of flow in the distal right posterior tibial artery. 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 No occlusion or severe stenosis detected in the left lower extremity. Reviewed, dictated and finalized at location K. IMPRESSION: Persistent occlusion of the right common iliac and external iliac artery grafts as well as the right internal iliac artery. Occluded superficial right lateral abdominal graft. Flow preserved to the common femoral artery via an abdominal collateral. Occluded trifurcation on the right. Minimal reconstitution of flow in the distal right posterior tibial artery. 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 No occlusion or severe stenosis detected in the left lower extremity.
[2022-08-19 14:14] LABS: Glucose Point of Care 447 mg/dl (65-105)
--- NOTE | 2022-08-19 14:20 | PC.NURSE ---
BG was 447 at 1415, Dr. Guerrero notified notified
--- NOTE | 2022-08-19 14:32 | ECG_ITS ---
Measurements Intervals [place] Rate: 94 P: -3 TN: 176 QRS: 85 QRSD: 98 T: 3 QT: 354 QTc: 444 Interpretive Statements SINUS RHYTHM LOW QRS VOLTAGE IN LIMB LIEADS POSSIBLE LATERAL MYOCARDIAL INFARCTION , PROBABLY OLD [30 ms Q WAVE IN I/aVL/V5/V6] COMPARED TO ECG 10/10/2021 10:25:22 NO SIGNIFICANT CHANGES Electronically Signed On 08-20-2022 17:27:33 CDT by Josey Wakefield M.D.
--- NOTE | 2022-08-19 14:41 | ED.EXTPRO ---
HPI - Extremity Problem General Chief complaint: Extremity Problem,Nontraumatic Stated complaint: RLE numbness Time Seen by Provider: 08/19/22 14:21 Source: patient and EMS Mode of arrival: EMS Limitations: no limitations History of Present Illness HPI Narrative: 62 years old white male came to the emergency room from home by ambulance complaining of increased numbness, tingling and weakness of the right lower leg below the knee started 11 AM yesterday this morning patient fell in the bathtub because his leg did not work. Patient currently on aspirin and Eliquis Related Data Home Medications Medication Instructions Recorded Confirmed albuterol sulfate 90 mcg/actuation 2 puff inhalation Q4H PRN 10/06/19 06/12/22 aerosol inhaler (Proventil HFA) Shortness Of Breath aspirin 81 mg tablet,delayed 81 mg PO DAILY 10/06/19 06/12/22 release ferrous sulfate 325 mg (65 mg 325 mg PO BID 10/06/19 06/12/22 iron) tablet hydrocodone 7.5 mg-acetaminophen 1 tablet PO Q6H PRN Pain (Scale 10/06/19 06/12/22 325 mg tablet ([place]) Score 7-10) levetiracetam 1,000 mg tablet 1,000 mg PO Q12H 10/06/19 06/12/22 alprazolam 1 mg tablet 1 mg PO BID PRN Anxiety 10/07/19 06/12/22 famotidine 20 mg tablet 20 mg PO BID 10/07/19 06/12/22 duloxetine 60 mg capsule,delayed 60 mg PO DAILY 08/30/21 06/12/22 release prazosin 1 mg capsule 1 mg PO QHS 11/24/21 06/12/22 pregabalin 150 mg capsule 150 mg PO BID 11/24/21 06/12/22 Allergies Allergy/AdvReac Type Severity Reaction Status Date / Time glimepiride Allergy Intermediate Rash Verified 06/12/22 10:52 codeine Allergy Unknown Unknown Verified 06/12/22 10:52 glyburide Allergy Unknown Unknown Verified 06/12/22 10:52 metformin Allergy Unknown Unknown Verified 06/12/22 10:52 Review of Systems Review of Systems: All systems reviewed & are unremarkable except as noted in HPI and below PMFSH Past Medical History Medical History Anemia Ankle fracture, left Anxiety Arterial thrombosis 07/2016, right lower extremity Arthritis Asthma Atrial flutter with rapid ventricular response Bipolar disorder Body mass index (BMI) 23 or greater (01/21/19) CAD in [place] artery Cardiac Chest pain at rest Chronic systolic heart failure COPD (chronic obstructive pulmonary disease) CVA (cerebral vascular accident) 2015 Deep vein thrombosis (DVT) 05/2018, left leg Depression Diabetes 1.5, 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, managed as type 2 Elevated lipids Essential (primary) hypertension GI bleed H/O blood clots Headache, migraine History of radiation therapy Hyperlipidemia Hypertension Ischemic cardiomyopathy Left ventricular apical thrombus following GA Liver disease Lupus Mitral valve prolapse Myocardial infarction PAD (peripheral artery disease) PAF (paroxysmal atrial fibrillation) 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, repaired Patent foramen ovale Pneumonia Portal vein thrombosis Prostate cancer 08/2021, Biochemical Seizure disorder Steatohepatitis Thrombosis of atrium, auricular appendage, and ventricle as current complications following acute myocardial infarction TIA (transient ischemic attack) Type 2 diabetes mellitus with hyperglycemia Ventricular fibrillation 07/2016 Surgical History Surgical History Elective surgery 07/2016, thrombectomy H/O cardiac radiofrequency ablation History of heart surgery stent placed; fibroelastoma on valve repair; patent foramenal ovale repair History of surgery on lower extremity 07/2016, left leg 2016, left leg bypass right leg stent 08/2020, right leg bypass History of tonsillectomy Hx of CABG Family History Family History Sibling Parkinson disease Brain cancer Mother Diabetes mellitus Cancer Social History Social History
[2022-08-19] MEDS: HEPARIN SOD/D5W 100 UNITS/ML 25,000 UNITS/250 ML BAG 15 UNITS IV CONT (14:52)
[2022-08-19 14:56] LABS: Basophils Absolute Auto 0.1 K/mm3 (0.0-0.1); Basophils Percent Auto 1.1 % (0.2-1.2); Eosinophils Absolute Auto 0.1 K/mm3 (0-0.3); Eosinophils Percent Auto 1.9 % (0-4.4); Hematocrit 50.4 % (42.0-52.0); Hemoglobin 17.1 g/dL (14.0-18.0); Immature Granulocyte Absolute 0.02 K/mm3 (0.00-0.031); Immature Granulocyte Percent A 0.4 % (0-0.5); Immature Platelet Fraction Pct 5.4 % (0.9-11.2); Lymphocytes Absolute Auto 1.24 K/mm3 (0.9-3.2); Lymphocytes Percent Auto 23.2 % (18.3-44.2); Mean Corpuscular HGB Conc 33.9 g/dl (32-36); Mean Corpuscular Hemoglobin 32.3 pg (26-34); Mean Corpuscular Volume 95.3 fl (80-100); Monocytes Absolute Auto 0.4 K/mm3 (0.1-0.6); Monocytes Percent Auto 6.9 % (2.6-8.5); Neutrophils Absolute Auto 3.6 K/mm3 (1.3-6.7); Neutrophils Percent Auto 66.5 % (45.5-73.1); Platelet Count Result 151 k/mm3 (150-375); Red Blood Count 5.29 M/mm3 (4.6-6.20); Red Cell Distribution Width 13.4 % (11.5-14.5); White Blood Count 5.3 K/mm3 (4.5-10.0)
[2022-08-19 15:02] LABS: INR 1.1; Prothrombin Time 13.8 Seconds (11.1-14.7)
[2022-08-19 15:03] LABS: Partial Thromboplastin Time 33.3 SECONDS (22.3-36.8)
[2022-08-19 15:07] LABS: Alanine Aminotransferase 24 U/L (6-50); Albumin Level 4.4 g/dL (3.5-5.1); Alkaline Phosphatase 117 U/L (38-126); Anion Gap 13 mmol/L (8-16); Aspartate Amino Transferase 20 U/L (17-59); Bilirubin,Total 0.8 mg/dL (0.2-1.3); Blood Urea Nitrogen 11 mg/dL (9-20); Calcium 9.1 mg/dL (8.4-10.2); Carbon Dioxide 21 mmol/L (22-30); Chloride 100 mmol/L (98-107); Estimated CRCL calculation 109 ml/min; Estimated Glomerular Filt Rate > 60; Glucose 388 mg/dL (65-110); Potassium 4.4 mmol/L (3.4-5.0); Sodium 134 mmol/L (137-145)
[2022-08-19 16:02] LABS: SARS-CoV-2 RNA PCR Negative
--- NOTE | 2022-08-19 19:22 | PC.NURSE ---
Assumed care of pt at this time. Pt alert and upright on stretcher, Heparin infusing per MAR. Pt updated on POC.
--- NOTE | 2022-08-19 20:19 | PC.NURSE ---
Spoke with Agatha at the [facility], [facility] have no beds available, both at capacity. 2 patients on transfer waitlist. Will not have anything through tonight.
[2022-08-19 20:33] LABS: Basophils Absolute Auto 0.1 K/mm3 (0.0-0.1); Eosinophils Absolute Auto 0.2 K/mm3 (0-0.3); Eosinophils Percent Auto 2.9 % (0-4.4); Hematocrit 50.4 % (42.0-52.0); Hemoglobin 16.6 g/dL (14.0-18.0); Immature Granulocyte Absolute 0.03 K/mm3 (0.00-0.031); Immature Granulocyte Percent A 0.4 % (0-0.5); Lymphocytes Absolute Auto 2.07 K/mm3 (0.9-3.2); Lymphocytes Percent Auto 30.2 % (18.3-44.2); Mean Corpuscular HGB Conc 32.9 g/dl (32-36); Mean Corpuscular Hemoglobin 31.8 pg (26-34); Mean Corpuscular Volume 96.6 fl (80-100); Mean Platelet Volume 10.6 fl (7.4-10.4); Monocytes Absolute Auto 0.6 K/mm3 (0.1-0.6); Neutrophils Absolute Auto 3.9 K/mm3 (1.3-6.7); Neutrophils Percent Auto 57.5 % (45.5-73.1); Platelet Count Result 146 k/mm3 (150-375); Red Blood Count 5.22 M/mm3 (4.6-6.20); Red Cell Distribution Width 13.5 % (11.5-14.5); White Blood Count 6.9 K/mm3 (4.5-10.0)
[2022-08-19 20:43] LABS: INR 1.1; Prothrombin Time 13.6 Seconds (11.1-14.7)
[2022-08-19 20:44] LABS: Partial Thromboplastin Time 53.9 SECONDS (22.3-36.8)
[2022-08-19] MEDS: HEPARIN SODIUM 5,000 UNITS/ML VIAL 7500 UNITS IV PUSH (21:04)
[2022-08-19] MEDS: FAMOTIDINE 20 MG TABLET PO (23:58)
[2022-08-19] MEDS: HYDROcodone/acetaminophen (*CRX) 7.5-325 MG TABLET 1 TAB PO (23:58)
--- NOTE | 2022-08-20 | PC.NURSE ---
Spoke with Michael at [facility], no beds at this time.
[2022-08-20 02:03] VITALS: BP 115/75; PULSE 84; RESP 12; O2SAT 94
[2022-08-20 03:56] VITALS: PULSE 61; RESP 16; O2SAT 94
[2022-08-20 04:11] LABS: INR 1.1; Prothrombin Time 14.1 Seconds (11.1-14.7)
[2022-08-20 04:12] LABS: Partial Thromboplastin Time > 200.0 SECONDS (22.3-36.8)
[2022-08-20 04:56] VITALS: BP 91/56; PULSE 65; RESP 18; O2SAT 94
[2022-08-20 05:51] LABS: Basophils Absolute Auto 0.1 K/mm3 (0.0-0.1); Basophils Percent Auto 1.3 % (0.2-1.2); Eosinophils Absolute Auto 0.3 K/mm3 (0-0.3); Eosinophils Percent Auto 3.5 % (0-4.4); Hematocrit 48.8 % (42.0-52.0); Hemoglobin 16.5 g/dL (14.0-18.0); Immature Granulocyte Absolute 0.03 K/mm3 (0.00-0.031); Immature Granulocyte Percent A 0.4 % (0-0.5); Lymphocytes Absolute Auto 2.58 K/mm3 (0.9-3.2); Lymphocytes Percent Auto 36.2 % (18.3-44.2); Mean Corpuscular HGB Conc 33.8 g/dl (32-36); Mean Corpuscular Hemoglobin 31.5 pg (26-34); Mean Corpuscular Volume 93.3 fl (80-100); Mean Platelet Volume 10.5 fl (7.4-10.4); Monocytes Absolute Auto 0.5 K/mm3 (0.1-0.6); Neutrophils Absolute Auto 3.7 K/mm3 (1.3-6.7); Neutrophils Percent Auto 51.6 % (45.5-73.1); Platelet Count Result 143 k/mm3 (150-375); Red Blood Count 5.23 M/mm3 (4.6-6.20); Red Cell Distribution Width 13.4 % (11.5-14.5); White Blood Count 7.1 K/mm3 (4.5-10.0)
[2022-08-20 06:18] VITALS: BP 110/74; PULSE 58; RESP 16; O2SAT 96
--- NOTE | 2022-08-20 06:38 | PC.NURSE ---
Spoke with Agatha at [facility] Transfer Center, [facility] is hoping to obtain additional staffing for today. If so, this patient can hopefully get a room sooner. As of now, patient is still in waitlist for bed.
[2022-08-20 07:04] LABS: Partial Thromboplastin Time 110.1 SECONDS (22.3-36.8)
--- NOTE | 2022-08-20 07:32 | PC.NURSE ---
Giovanny Ems accepted transfer to [facility] Rm 128 Lights / [place] ETA 20min Trip # [id number]
[2022-08-20 07:36] VITALS: BP 109/92; PULSE 57; RESP 16; O2SAT 93
[2022-08-20] MEDS: HEPARIN SOD/D5W 100 UNITS/ML 25,000 UNITS/250 ML BAG 16 UNITS IV CONT (07:46)
== END 2022-08-20 07:59 | disposition short-term general hospital (02) ==
PROVIDERS: Emergency Medicine; Emergency Provider Emergency Medicine; PCP Emergency Medicine
DX: I70.308 Unspecified atherosclerosis of unspecified type of bypass graft(s) of the extremities, other extremity (principal); Z20.822 Contact with and (suspected) exposure to COVID-19; J44.9 Chronic obstructive pulmonary disease, unspecified; I74.5 Embolism and thrombosis of iliac artery; I48.0 Paroxysmal atrial fibrillation; I11.0 Hypertensive heart disease with heart failure; I50.22 Chronic systolic (congestive) heart failure; I25.10 Atherosclerotic heart disease of native coronary artery without angina pectoris; I48.92 Unspecified atrial flutter; E78.5 Hyperlipidemia, unspecified; I25.5 Ischemic cardiomyopathy; K76.9 Liver disease, unspecified; I25.2 Old myocardial infarction; E13.51 Other specified diabetes mellitus with diabetic peripheral angiopathy without gangrene; I34.1 Nonrheumatic mitral (valve) prolapse; G40.909 Epilepsy, unspecified, not intractable, without status epilepticus; F17.210 Nicotine dependence, cigarettes, uncomplicated; Z95.1 Presence of aortocoronary bypass graft; Z95.5 Presence of coronary angioplasty implant and graft; Z85.46 Personal history of malignant neoplasm of prostate; Z86.73 Personal history of transient ischemic attack (TIA), and cerebral infarction without residual deficits; Z87.01 Personal history of pneumonia (recurrent); Z86.2 Personal history of diseases of the blood and blood-forming organs and certain disorders involving the immune mechanism; Z92.3 Personal history of irradiation; Z86.718 Personal history of other venous thrombosis and embolism; Z79.4 Long term (current) use of insulin; Z79.01 Long term (current) use of anticoagulants; Z79.82 Long term (current) use of aspirin; R94.31 Abnormal electrocardiogram [ECG] [EKG]
CPT/HCPCS: 36415; 73706; 80053; 82948; 85025; 85055; 85610; 85730; 93005; 96365; 96366; 99285; A9270; C9803; J1644; Q9967; U0003; U0005

== ENCOUNTER 2023-09-13 08:23 | Outpatient (CLI) | payer OTHER, SELFPAY ==
--- NOTE | 2023-09-13 08:41 | ECHO_ITS ---
Patient Info Name: Martin Mcwilliams Age: 63 years : 1960 Gender: Male Ht: 73 in Wt: 182 lbs BSA: 2.06 m2 HR: 81 bpm Technical Quality: Poor Exam Date: 09/13/2023 8:55 AM Exam Location: [facility] Pulmonary Patient Status: Outpatient Admit Date: 09/13/2023 Staff Ordering Physician: Gus Robison DO Dobby Loom Weaver: Amari Mckeon RDCS Attending Provider: Gus Robison DO Referring Physician: Ricki BUCKLEY; Exam Type: CA echo dop color flow w con Study Info Indications I25.10 - Atherosclerotic heart disease of [place] coronary artery without angina pectoris Complete two-dimensional, color flow and Doppler transthoracic echocardiogram is performed with contrast to opacify the left ventricle and to improve the deliniation of the left ventricle endocardial borders. Contrast/Agitated Saline Contrast/Ag. Saline: Definity Amount: 8.00 ml New IV Access: Antecubital Space and Left Site Condition: No extravasation, Site dressing applied and IV removed Reason for Poor Study: poor echocardiographic windows Summary 1. Technically suboptimal study due to poor sonogrphic images. 2. Definity contrast administered improved wall motion interpretation. 3. Left ventricular chamber dimension is normal. 4. Left ventricular systolic function is normal, estimated at 55-60%. 5. The left ventricular diastolic function is grade I diastolic dysfunction. 6. E/e' 5 is not elevated. 7. There is mild aortic valve sclerosis. 8. No pulmonary hypertension, estimated pulmonary arterial systolic pressure is 10 mmHg. Left Ventricle Definity contrast administered improved wall motion interpretation. E/e' 5 is not elevated. Technically suboptimal study due to poor sonogrphic images. Left ventricular chamber dimension is normal. Left ventricular systolic function is normal, estimated at 55-60%. The left ventricular diastolic function is grade I diastolic dysfunction. Right Ventricle Right ventricular chamber dimension is not well visualized. Left Atria Left atrial chamber dimension is normal. Right Atria Right atrial chamber dimension is normal. Aortic Valve The aortic valve is trileaflet. There is mild aortic valve sclerosis. There is no aortic valve stenosis. There is no aortic valve regurgitation. Pulmonic Valve There is no pulmonic regurgitation. Mitral Valve There is no mitral valve stenosis. There is no mitral valve regurgitation. Tricuspid Valve There is no tricuspid valve regurgitation. No pulmonary hypertension, estimated pulmonary arterial systolic pressure is 10 mmHg. Pericardium/Pleural There is no pericardial effusion. Inferior Vena Cava Normal inferior vena cava with >50% collapse upon inspiration consistent with normal right atrial pressure, 5 mmHg. Aorta The aortic root size at the sinus of Valsalva is normal. Left Ventricular Outflow Tract Name Value Normal LVOT 2D LVOT Diameter 2.05 cm LVOT Doppler LVOT Peak Gradient 1 mmHg LVOT Mean Gradient 1 mmHg LVOT VTI 15.13 cm LVOT VTI/AV VTI Ratio 0.79 LVOT Stroke Volume 49.70 m
[2023-09-13] MEDS: PERFLUTREN LIPID MICROSPHERES 1.5 ML VIAL DILUTED TO 10 ML TOTAL VOLUME IV PUSH (09:47)
--- NOTE | 2023-09-18 14:35 | IVDEFINITY ---
Prior to administration of IV Definity the patient was educated on the risks and benefits of the imaging enhancing agent including potential adverse side effects. The patient verbalized understanding. Allergies were verified. No exclusion criteria were identified and at least one of the following inclusion criteria were met: 1) physician request, 2) patient technically difficult to image (per the [place] [employer] guidelines of two or more segments not discernable within the apical view), or 3) questionable left ventricular function. ?
== END 2023-09-13 08:24 | disposition home or self-care (01) ==
PROVIDERS: PCP Emergency Medicine; Visit Provider Internal Medicine Cardiovascular Disease
DX: I25.10 Atherosclerotic heart disease of native coronary artery without angina pectoris (principal)
CPT/HCPCS: C8929; Q9957